=== PATIENT | male | born 1950 | race Caucasian/White ===

== ENCOUNTER 2017-04-26 05:58 | Inpatient (IN) ==
[2017-04-26 06:35] LABS: Basophils % 0.2 %; Hemoglobin 15.3 g/dL (12.9-16.9); Immature Granulocytes % 0.5 % (0-4); Lymphocytes % 14.8 %; Mean Corpuscular HGB Conc 35.6 g/dL (31.6-35.5); Mean Corpuscular Hemoglobin 31.2 pg (28.0-33.3); Mean Corpuscular Volume 87.6 fL (83.0-100.0); Mean Platelet Volume 11.2 fL (9.4-12.4); Monocytes # 0.7 K/mcL (0.0-1.3); Monocytes % 5.4 %; Neutrophils # 10.5 K/mcL (1.6-8.9); Platelet Count 259 K/mcL (140-400); Red Blood Count 4.91 M/mcL (4.19-5.50); Red Cell Distribution Width 12.5 % (11.5-14.5); Segmented Neutrophils % 79.1 %
[2017-04-26 06:46] LABS: BUN/Creatinine Ratio 18 (6-26); Blood Urea Nitrogen 17 mg/dL (8-23); Calcium 8.9 mg/dL (8.6-10.3); Carbon Dioxide 23 mEq/L (23-29); Chloride 101 mEq/L (98-107); Glucose 337 mg/dL (70-105); Osmolality,Calculated 293 (280-300); Potassium 3.9 mEq/L (3.5-5.1); Sodium 134 mEq/L (136-145); eGFR For African Americans > 60 (> 60); eGFR For Non-African Americans > 60 (> 60)
--- NOTE | 2017-04-26 06:53 | Emergency Department Note ---
Disposition Clinical Impression: Community acquired pneumonia Disposition: Admitted As Inpatient Condition: Good SOB HPI - General Chief Complaint: ED Shortness of Breath/Dyspnea Stated Complaint: BUBBA Time Seen by Provider: 04/26/17 06:19 Source: patient, family Mode of arrival: private vehicle Limitations: no limitations Nursing Notes Reviewed: Yes Vital Signs Reviewed: Yes - History of Present Illness 67-year-old male history of COPD, atrial fibrillation on xarelto, COPD no oxygen dependency who presents to the ER with a chief complaint of shortness of breath. Patient reports he had nasal polyp surgery yesterday by ENT. States he had intermittent shortness of breath for couple days but nothing severe. He only has to use his COPD medications as needed. He reports no the night that he developed sudden onset shortness of breath. States he got up and was walking around and that seemed to help. 6 systolic he could not get his breath. He reports that he was coughing up some blood yesterday after the surgery but that improved. He has been off his anticoagulation for a few days he reports. No chest pain. No nausea vomiting or diarrhea. No fevers. No other complaints. Pt Subjective Complaint: shortness of breath Onset (ago): hour(s) Severity: severe Consistency/Duration: constant Improves with: nothing Worsens with: nothing Known history of: COPD Associated symptoms: Reports: cough. Denies: chest pain, fever Treatment prior to arrival: none Cough present: Yes Cough Description: Involuntary Cough Frequency: Intermittent Sputum production: No Sputum Amount: None - Related Data Home oxygen amount: none Home Medications Medication Instructions Recorded Confirmed Fish Oil/Dha/Epa [Fish Oil 1,200 1,200 mg PO BID 05/12/16 04/26/17 mg Fish Oil] Losartan/Hydrochlorothiazide 1 tab PO DAILY 05/12/16 04/26/17 [Hyzaar 100-25 Tablet] Metformin HCl [Glucophage Xr] 750 mg PO BID 05/12/16 04/26/17 Rivaroxaban [Xarelto] 20 mg PO DAILY 05/12/16 04/26/17 Simvastatin [Zocor] 20 mg PO DAILY 05/12/16 04/26/17 Sotalol HCl [Betapace] 120 mg PO BID 05/12/16 04/26/17 Zolpidem [Ambien] 10 mg PO HS 05/12/16 04/26/17 Fluticasone Propionate Nasal 1 spray NS DAILY 04/25/17 04/26/17 [Flonase] Fluticasone/Vilanterol [Breo 1 puff IH DAILY 04/25/17 04/26/17 Ellipta 100-25 Mcg INH] GlipiZIDE [Glipizide ER] 10 mg PO BID 04/25/17 04/26/17 Insulin Glargine,Hum.rec.anlog 20 unit SQ HS 04/25/17 04/26/17 [Lantus Solostar] Montelukast [Singulair] 10 mg PO DAILY 04/25/17 04/26/17 Omeprazole [PriLOSEC] 40 mg PO DAILY 04/25/17 04/26/17 Previous Rx's Medication Instructions Recorded HYDROcodone/Acet 5/325 mg [[place] 1 tab PO Q4H PRN #42 tab 04/25/17 5-325 mg] Albuterol Sulfate [Albuterol 0 puff IH Q6HR 7 Days #1 vial 04/28/17 Inhaler] Cefuroxime PO [Ceftin] 500 mg PO Q12HR 5 Days #5 tablet 04/28/17 Doxycycline 100 mg PO BID 7 Days #14 capsule 04/28/17 amLODIPine [Norvasc] 10 mg PO DAILY #60 tablet 04/28/17 predniSONE [PredniSONE] 10 mg PO AD #30 tablet 04/28/17 Allergies Allergy/AdvReac Type Severity Reaction Status Date / Time No Known Allergies Allergy Verified 04/26/17 05:59 All systems ED: reviewed and negative except as stated. Constitutional: Denies: fever Cardiovascular: Denies: chest pain Respiratory: Reports: cough, dyspnea, hemoptysis Gastrointestinal: Denies: nausea, vomiting, diarrhea Past Medical History - Past Medical History Attestation: Yes The following information was validated with the patient. Source: patient Medical history: Reports: arthritis, atrial fibrillation, diabetes, GERD, hyperlipidemia, hypertension Psychiatric history: Reports: no psych history - Social History Smoking Status: Former smoker Smokeless Tobacco Status: No Alcohol use: Reports: none Drug use: Reports: none Physical Exam - General Limitations: no limitations General appearance: alert, anxious - Head Head exam: atraumatic, normocephalic - Eye Eye exam: Present: normal appearance - ENT ENT exam: normal exam, normal oropharynx - Neck Neck exam: Present: normal inspection - Chest Chest inspection: Present: normal inspection, symmetric chest wall rise - Respiratory Respiratory exam: Present: normal lung sounds bilaterally. Absent: wheezes, stridor, prolonged expiratory phase - Cardiovascular Cardiovascular exam: Present: regular rate, irregular rhythm, normal heart sounds - Abdominal Exam Abdominal exam: Present: soft, Non-Tender. Absent: tenderness - Extremities Exam Extremities exam: Present: normal inspection, full ROM - Expanded Upper Extremity Exam Shoulder exam: Present: normal inspection, full ROM Arm exam: Present: normal inspection, full ROM Elbow exam: Present: normal inspection, full ROM Forearm/Wrist exam: Present: normal inspection, full ROM Hand exam: Present: normal inspection, full ROM - Expanded Lower Extremity Exam Hip/Pelvis exam: Present: normal inspection, full ROM Upper leg exam: Present: normal inspection, full ROM Knee exam: Present: normal inspection, full ROM Lower leg exam: Present: normal inspection, full ROM Ankle exam: Present: normal inspection, full ROM Foot/toe exam: Present: normal inspection, full ROM - Neurological Exam Neurological exam: Present: alert, other (Appears anxious. GCS 15. Nonfocal.) - Psychiatric Psychiatric exam: Present: anxious - Skin Skin exam: Present: warm, dry, intact Course Course Narrative: Patient seen and examined. He is around 91% during conversation but this improved to 97% without oxygen. He appears conversationally dyspneic. Given his recent hold on anticoagulation and sudden onset of symptoms we will pursue a CTA for evaluation of pulmonary embolus as well as EKG and labs including troponin and BNP. - Reevaluation(s) Reevaluation #1: Discussed results of imaging and lab work with the patient. He is agreeable with being admitted to the hospital. Vital Signs Temperature 98.2 F 04/26/17 05:59 Pulse Rate 74 04/26/17 05:59 Respiratory Rate 24 04/26/17 05:59 Blood Pressure 197/115 04/26/17 05:59 O2 Sat by Pulse Oximetry 97 04/26/17 05:59 Temperature 98.2 F 04/28/17 15:31 Pulse Rate 77 04/28/17 15:31 Respiratory Rate 16 04/28/17 15:31 Blood Pressure 170/92 04/28/17 15:31 O2 Sat by Pulse Oximetry 94 04/28/17 15:31 Oxygen Delivery Oxygen Delivery Nasal Cannula Shortness of Breath/Dyspnea - [facility] Narrative Medical decision making narrative: 67-year-old male presents to the ER due to shortness of breath. Recently had sinus procedure and has been off anticoagulation. He was noted to be down to 91 % on room air here however improved without intervention. Currently on 2 L nasal cannula for comfort. EKG shows no ischemic findings. Chest x-ray unremarkable. CT obtained given concern for pulmonary embolism. Questionable developing right upper lobe pneumonia. Patient given Rocephin and Zithromax. Lactate is normal. Admitted to the hospitalist service for community-acquired pneumonia. - Lab Data Lab results reviewed: Yes I reviewed the patient's lab results. Result diagrams: 04/28/17 13:04 04/28/17 13:04 Lab Results 04/26/17 04/26/17 04/26/17 Range/Units 06:15 06:15 06:15 WBC 13.3 H (4.3-11.1) K/mcL RBC 4.91 (4.19-5.50) M/mcL Hgb 15.3 (12.9-16.9) g/dL Hct 43.0 (37.5-50.1) % MCV 87.6 (83.0-100.0) fL MCH 31.2 (28.0-33.3) pg MCHC 35.6 H (31.6-35.5) g/dL RDW 12.5 (11.5-14.5) % Plt Count 259 (140-400) K/mcL MPV 11.2 (9.4-12.4) fL Immature Gran % 0.5 (0-4) % Seg Neutrophils % 79.1 % Lymphocytes % 14.8 % Monocytes % 5.4 % Eosinophils % 0.0 % Basophils % 0.2 % Neutrophils # 10.5 H (1.6-8.9) K/mcL Lymphocytes # 2.0 (0.6-4.6) K/mcL Monocytes # 0.7 (0.0-1.3) K/mcL Eosinophils # 0.0 (0.0-0.6) K/mcL Basophils # 0.0 (0.0-0.2) K/mcL Sodium 134 L (136-145) mEq/L Potassium 3.9 (3.5-5.1) mEq/L Chloride 101 (98-107) mEq/L Carbon Dioxide 23 (23-29) mEq/L BUN 17 (8-23) mg/dL Creatinine 0.96 (0.70-1.30) mg/dL Est GFR ( Amer) > 60 (> 60) Est GFR (Non-Af Amer) > 60 (> 60) BUN/Creatinine Ratio 18 (6-26) Glucose 337 H (70-105) mg/dL Calculated Osmolality 293 (280-300) Lactic Acid (0.5-2.2) mmol/L Calcium 8.9 (8.6-10.3) mg/dL Troponin I < 0.03 (< 0.04) ng/mL B-Natriuretic Peptide (Less than 100) pg/mL 04/26/17 04/26/17 Range/Units 06:15 08:16 WBC (4.3-11.1) K/mcL RBC (4.19-5.50) M/mcL Hgb (12.9-16.9) g/dL Hct (37.5-50.1) % MCV (83.0-100.0) fL MCH (28.0-33.3) pg MCHC (31.6-35.5) g/dL RDW (11.5-14.5) % Plt Count (140-400) K/mcL MPV (9.4-12.4) fL Immature Gran % (0-4) % Seg Neutrophils % % Lymphocytes % % Monocytes % % Eosinophils % % Basophils % % Neutrophils # (1.6-8.9) K/mcL Lymphocytes # (0.6-4.6) K/mcL Monocytes # (0.0-1.3) K/mcL Eosinophils # (0.0-0.6) K/mcL Basophils # (0.0-0.2) K/mcL Sodium (136-145) mEq/L Potassium (3.5-5.1) mEq/L Chloride (98-107) mEq/L Carbon Dioxide (23-29) mEq/L BUN (8-23) mg/dL Creatinine (0.70-1.30) mg/dL Est GFR ( Amer) (> 60) Est GFR (Non-Af Amer) (> 60) BUN/Creatinine Ratio (6-26) Glucose (70-105) mg/dL Calculated Osmolality (280-300) Lactic Acid 1.2 (0.5-2.2) mmol/L Calcium (8.6-10.3) mg/dL Troponin I (< 0.04) ng/mL B-Natriuretic Peptide 118 H (Less than 100) pg/mL - Radiology Data Radiology results reviewed: Yes I reviewed the patient's radiology results. Chest X-Ray 04/26/17 06:29 IMPRESSION: Hypoinflated lungs. No acute cardiopulmonary abnormality. D/ / Tara Perry MD / Tara Perry MD Interpreting Provider: Tara Perry MD Chest CTA 04/26/17 06:55 IMPRESSION: 1. No CT evidence of a pulmonary embolism. 2. No acute abnormality of the thoracic aorta. 3. A focal reticulonodular opacity within the posterior segment of right upper lobe, most consistent with developing pneumonia. However, given its somewhat nodular appearance, suggest appropriate clinical treatment and short-term chest CT follow-up in 6-8 weeks to ensure resolution of this opacity. 4. Scattered diffuse ground-glass opacity throughout both lungs likely reflects either atelectasis, pulmonary edema, or chronic small airways disease. D/ / 04/26/2017 07:55:45 Rob Mai MD / [facility] Interpreting Provider: Rob Mai MD - EKG Data EKG attestation: Yes I reviewed and interpreted this EKG. EKG results narrative: EKG demonstrates sinus rhythm with first-degree AV block with a rate of 70 bpm. Normal axis. Prolonged FL interval of 336. Other intervals normal. Normal R -wave progression. T-wave inversion in lead 3 unchanged from previous. No gross ST elevations or depressions. No acute ischemic findings. No significant changes from previous EKG dated 05/12/16. S.B.A.R. - S.B.A.R. Situation: Demographics, MOA Background: Presenting Complaint, Relevant PMH, Meds, & Allergies Assessment: Course and respsone to treatment, Exam Concerns, Patient/Family Expectation, Pertinant Lab Results Recommendation: Barrier(s) to disposition, Recommendation based on pending studies, treatments, or consults S.B.A.R. Report Given to: Dr. Castro Attestation Statement - Attestation Attestation: I examined this patient and my medical decision-making was reviewed with the Resident Physician, Dr. Kaur. I agree with the documented findings, disposition and treatment plan as described except to the extent set forth below. Patient is a 67-year-old white male with a history of COPD and atrial fibrillation on Xarelto who presents to the emergency department this morning status post sinus surgery with nasal pack in place bilaterally is complaining of gradually worsening shortness of breath. Patient was initially seen and evaluated by Dr. Greer and the night clerk team, we resumed care after initial labs that are even ordered and we were awaiting CT imaging. Concerned by the night clerk team was that he had been taken off his Xarelto for 2 days for his sinus surgery and then developed sudden onset shortness of breath and were concerned about possibility of PE. Patient is not tachycardic on arrival. Patient was quite hypertensive on initial arrival on reevaluation later in his ED course blood pressure has come down significantly without any intervention in the ED. Patient is in no acute distress with no signs of respiratory distress but does have some mild conversational dyspnea. I agree with the patient's physical exam findings as documented. Blood pressure improved. Patient received initial laboratory assessment, we added a lactate based on patient's elevated white count and tachypnea which now meet SIRS criteria. Patient's blood pressure is stable remaining vitals are stable at this time. I did evaluate the patient upon return from CT scanner and IV fluids were reestablished on arrival back to the room and patient had infiltration of the normal saline. Peripheral IV fluids were discontinued and IV was removed warm compress was placed on the site. Patient had no pain to the IV site during IV contrast dye administration and CT. CT scan was negative for PE, but does show likely right upper lobe pneumonia. Patient with bilateral groundglass opacities but right greater than left. Considering patient's postop status, difficulty with nasal breathing due to packing, exacerbation of COPD and now pneumonia we will recommend admission for further evaluation and treatment. Patient will be started on antibiotics to cover for community-acquired pneumonia, and case will be discussed with hospitalist.
--- NOTE | 2017-04-26 06:54 | Emergency Department Note ---
START Narrative - START START: I examined this patient and my medical decision-making was reviewed with the Resident Physician. I agree with the documented findings, disposition and treatment plan as described except to the extent set forth below. Dyspnea. We will obtain CTA to rule out pulmonary embolism. Disposition pending results of advanced imaging and laboratory analysis.
[2017-04-26] MEDS: 0.9 % Sodium Chloride 500 ML IVC ONE ×2 (07:40→08:18)
[2017-04-26] MEDS ORDERED: Ipratropium/Albuterol Neb 3 ML IH ONE (08:03)
[2017-04-26] MEDS ORDERED: cefTRIAXone 1,000 MG in Water for inj. (sterile) 20 ML 10 ML IVP ONE (08:16)
[2017-04-26] MEDS ORDERED: Azithromycin 500 MG in D5% in Water 250 ML IVPB ONE (08:16)
--- NOTE | 2017-04-26 09:52 | Internal Med History&Physical ---
Date of Encounter: 05/26/17 Time of Encounter: 09:50 Assessment and Plan (1) COPD (chronic obstructive pulmonary disease) Status: Acute - SOB due to *COPD exacerbation caused by URTI, allergen exposure, medication nonocompliance PLAN: - Aerosols q 4 hr and PRN SOB - Solu-medrol 40 mg IV q 6 hr - O2 to keep SpO2 higher than 92% (SpO higher than 95% if CAD) - CBCD, BMP in AM - Sputum Gram stain, C+S - Tylenol 650 mg PO q 4-6 hr PRN pain/fever - Home meds - check the list and restart - ABs Qualifiers: Qualified Code(s): J44.9 - Chronic obstructive pulmonary disease, unspecified (2) Pneumonia Status: Acute CTA reveled A focal reticulonodular opacity within the posterior segment of right upper lobe, most consistent with questionable developing pneumonia. - Cont Abs , repeat CXR in Am Qualifiers: Pneumonia type: due to unspecified organism Laterality: right Lung location: upper lobe of lung Qualified Code(s): J18.1 - Lobar pneumonia, unspecified organism (3) Hypertension Status: Acute We will cont home meds. Qualifiers: Hypertension type: essential hypertension Qualified Code(s): I10 - Essential (primary) hypertension (4) Diabetes Status: Chronic We will cont home meds, HGB A1C , accu-check with coverage. 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 Internal Medicine - H&P: HPI Chief complaint: SOB Admitted From: Home History of present illness: Mr. Rosario is a 67 year old male with history of COPD, atrial fibrillation on xarelto, COPD no oxygen dependency and s/p nasal polyp surgery yesterday by ENT , who presents to the ER with a chief complaint of developed sudden onset of shortness of breath overnight. He has been off his anticoagulation for a few days wich raised a concern of possible PE howeever CTA obtained by ER was negative , he was admitted for further evaluation of COPD. Past Med Surg Social Fam HX - Past Medical History Medical history: arthritis, atrial fibrillation, diabetes, GERD, hyperlipidemia , hypertension Psychiatric history: no psych history - Social History Smoking Status: Former smoker Smokeless Tobacco Status: No Alcohol use: none Drug use: none Internal Medicine - H&P: Meds Fish Oil/Dha/Epa [Fish Oil 1,200 mg Fish Oil] 1,200 mg PO BID 05/12/16 [History] Losartan/Hydrochlorothiazide [Hyzaar 100-25 Tablet] 1 tab PO DAILY 05/12/16 [ History] Metformin HCl [Glucophage Xr] 750 mg PO BID 05/12/16 [History] Rivaroxaban [Xarelto] 20 mg PO DAILY 05/12/16 [History] Simvastatin [Zocor] 20 mg PO DAILY 05/12/16 [History] Sotalol HCl [Betapace] 120 mg PO BID 05/12/16 [History] Zolpidem [Ambien] 10 mg PO HS 05/12/16 [History] Fluticasone Propionate Nasal [Flonase] 1 spray NS DAILY 04/25/17 [History] Fluticasone/Vilanterol [Breo Ellipta 100-25 Mcg INH] 1 puff IH DAILY 04/25/17 [ History] GlipiZIDE [Glipizide ER] 10 mg PO BID 04/25/17 [History] HYDROcodone/Acet 5/325 mg [[place] 5-325 mg] 1 tab PO Q4H PRN #42 tab 04/25/17 [Rx ] Insulin Glargine,Hum.rec.anlog [Lantus Solostar] 20 unit SQ HS 04/25/17 [History ] Montelukast [Singulair] 10 mg PO DAILY 04/25/17 [History] Omeprazole [PriLOSEC] 40 mg PO DAILY 04/25/17 [History] Albuterol Sulfate [Albuterol Inhaler] 0 puff IH Q6HR 7 Days #1 vial 04/28/17 [Rx ] Cefuroxime PO [Ceftin] 500 mg PO Q12HR 5 Days #5 tablet 04/28/17 [Rx] Doxycycline 100 mg PO BID 7 Days #14 capsule 04/28/17 [Rx] amLODIPine [Norvasc] 10 mg PO DAILY #60 tablet 04/28/17 [Rx] predniSONE [PredniSONE] 10 mg PO AD #30 tablet 04/28/17 [Rx] 3 Allergy/AdvReac Type Severity Reaction Status Date / Time No Known Allergies Allergy Verified 04/26/17 05:59 All Systems PM: A 10-system review of systems was performed and is negative for pertinent findings except as documented above in the HPI. - Constitutional Constitutional: fatigue, no chills, no fever(s), no night sweats - EENT Eyes: no change in vision, no discharge, no pain, no photophobia Ears: no ear discharge, no ear pain, no tinnitus Nose, mouth and throat: no dysphagia, no nasal discharge, no neck pain, no sore throat - Cardiovascular Cardiovascular ROS IM: dyspnea, no chest pain, no diaphoresis, no lightheadedness, no palpitations, no syncope - Respiratory Respiratory: cough, dyspnea, wheezing, no excessive phlegm production - Gastrointestinal Gastrointestinal: no abdominal pain, no diarrhea, no hematemesis, no hematochezia, no melena, no nausea, no vomiting - Neurological Neurological ROS: no confusion, no convulsions, no focal weakness, no numbness, no tingling, no tremor(s) - Constitutional Vitals: Temp Pulse Resp BP Pulse Ox 98.2 F 61 18 158/81 97 04/26/17 05:59 04/26/17 08:43 04/26/17 08:43 04/26/17 08:43 04/26/17 08:43 General appearance: Present: A&O X 3, pleasant, obese - Head Head exam: Present: atraumatic, normocephalic - Eye Eye exam: Present: PERRL, conjuntiva pink, sclera anicteric Pupils: Present: PERRL - Neck Neck exam general surgery: Present: supple, trachea midline. Absent: lymphadenopathy - Respiratory Respiratory exam: Present: rhonchi, wheezes. Absent: accessory muscle use, rales - Cardiovascular Cardiovascular exam: Present: RRR, +S1, +S2. Absent: diastolic murmur, gallop, rubs, systolic murmur - GI/Abdominal GI/Abdominal exam: Present: normal bowel sounds, soft, no peritoneal signs. Absent: distended, tenderness - Extremities Exam Extremities exam: Present: warm, radial pulses palpable and symmetrical. Absent : calf tenderness, cyanotic, pedal edema - Neurological Exam Neurological exam: Present: CN II-XII intact, oriented X3, no focal deficits. Absent: pronater drift, facial droop, speech deficit Internal Med - H&P Results - Labs CBC & Chem 7: 04/28/17 13:04 04/28/17 13:04 Labs: Short CBC 04/26/17 Range/Units 06:15 WBC 13.3 H (4.3-11.1) K/mcL Hgb 15.3 (12.9-16.9) g/dL Hct 43.0 (37.5-50.1) % Plt Count 259 (140-400) K/mcL Neutrophils # 10.5 H (1.6-8.9) K/mcL BMP 04/26/17 06:15 Sodium 134 L Potassium 3.9 Chloride 101 Carbon Dioxide 23 BUN 17 Creatinine 0.96 Glucose 337 H Calcium 8.9 Cardiac Enzymes 04/26/17 Range/Units 06:15 Troponin I < 0.03 (< 0.04) ng/mL - Impressions ITS Impressions Chest X-Ray 04/26/17 06:29 IMPRESSION: Hypoinflated lungs. No acute cardiopulmonary abnormality. D/ / Tara Perry MD / Tara Perry MD Interpreting Provider: Tara Perry MD Chest CTA 04/26/17 06:55 IMPRESSION: 1. No CT evidence of a pulmonary embolism. 2. No acute abnormality of the thoracic aorta. 3. A focal reticulonodular opacity within the posterior segment of right upper lobe, most consistent with developing pneumonia. However, given its somewhat nodular appearance, suggest appropriate clinical treatment and short-term chest CT follow-up in 6-8 weeks to ensure resolution of this opacity. 4. Scattered diffuse ground-glass opacity throughout both lungs likely reflects either atelectasis, pulmonary edema, or chronic small airways disease. D/ / 04/26/2017 07:55:45 Rob Mai MD / [email or web address] Interpreting Provider: Rob Mai MD
[2017-04-26] MEDS ORDERED: *HR* HYDROcodone/Acet 5/325 mg TABLET PO PRN (09:59)
[2017-04-26] MEDS ORDERED: *HR* Morphine 2 MG/ML SYRINGE IVP PRN (10:07)
[2017-04-26] MEDS ORDERED: Naloxone 0.4 MG/ML INJ IVP PRN (10:07)
[2017-04-26] MEDS ORDERED: Acetaminophen 325 MG TABLET PO PRN (10:07)
[2017-04-26] MEDS ORDERED: Mag Hydrox/Al Hydrox/Simeth 30 ML UDC PO PRN (10:07)
[2017-04-26] MEDS ORDERED: Ondansetron ODT 4 MG TAB.RAPDIS SL PRN (10:07)
[2017-04-26 11:01] LABS: Alanine Aminotransferase 14 Units/L (7-52); Albumin 4.1 g/dL (3.5-5.7); Albumin/Globulin Ratio 1.8 (1.1-2.2); Alkaline Phosphatase 91 Units/L (34-104); Aspartate Amino Transferase 14 Units/L (13-39); BUN/Creatinine Ratio 16 (6-26); Bilirubin,Total 0.7 mg/dL (0.3-1.0); Blood Urea Nitrogen 15 mg/dL (8-23); Calcium 8.7 mg/dL (8.6-10.3); Carbon Dioxide 22 mEq/L (23-29); Chloride 103 mEq/L (98-107); Globulin 2.3 g/dL (2.4-3.5); Glucose 331 mg/dL (70-105); Osmolality,Calculated 294 (280-300); Potassium 3.5 mEq/L (3.5-5.1); Sodium 135 mEq/L (136-145); Total Protein 6.4 g/dL (6.4-8.9); eGFR For African Americans > 60 (> 60); eGFR For Non-African Americans > 60 (> 60)
[2017-04-26] MEDS: Ipratropium/Albuterol Neb 3 ML IH SCH ×3 (11:20→22:28)
[2017-04-26] MEDS: 0.9 % Sodium Chloride 1,000 ML IVC SCH ×2 (11:39→21:02)
[2017-04-26] MEDS: MethylPREDNISolone 40 MG/ML VIAL IVP SCH ×2 (11:40→17:50)
[2017-04-26] MEDS ORDERED: *HR* Dextrose 50 % in Water (Syg) 50 ML SYRINGE IVP PRN (11:47)
[2017-04-26] MEDS ORDERED: Dextrose Gel 15 GM/37.5 ML TUBE PO PRN ×2 (11:47)
[2017-04-26] MEDS ORDERED: D5% in Water 1,000 ML IVC PRN (11:47)
[2017-04-26] MEDS ORDERED: Insulin LISPRO 300 UNITS/3 ML VIAL SQ ONE (11:51)
[2017-04-26] MEDS: Insulin LISPRO 300 UNITS/3 ML VIAL SQ SCH ×3 (12:00→20:54)
[2017-04-26] MEDS ORDERED: Losartan/HCTZ 50-12.5 TABLET PO ONE (20:52)
[2017-04-26] MEDS ORDERED: *HR* GlipiZIDE XL (24 HR) 10 MG TABLET PO SCH (21:00)
[2017-04-26] MEDS ORDERED: *HR* Metformin 500 MG TABLET PO SCH (21:00)
[2017-04-26] MEDS: Insulin DETEMIR 100 UNIT/ML X5UNITS SQ SCH (21:06)
[2017-04-27] MEDS: MethylPREDNISolone 40 MG/ML VIAL IVP SCH ×3 (00:12→21:35)
[2017-04-27] MEDS ORDERED: Saliva Stimulant 100ml BOTTLE PO PRN (01:51)
[2017-04-27 03:03] LABS: Basophils % 0.1 %; Hematocrit 42.5 % (37.5-50.1); Hemoglobin 14.6 g/dL (12.9-16.9); Immature Granulocytes % 0.3 % (0-4); Lymphocytes # 1.4 K/mcL (0.6-4.6); Lymphocytes % 11.8 %; Mean Corpuscular HGB Conc 34.4 g/dL (31.6-35.5); Mean Corpuscular Hemoglobin 30.8 pg (28.0-33.3); Mean Corpuscular Volume 89.7 fL (83.0-100.0); Monocytes # 0.3 K/mcL (0.0-1.3); Monocytes % 2.3 %; Neutrophils # 9.9 K/mcL (1.6-8.9); Platelet Count 235 K/mcL (140-400); Red Blood Count 4.74 M/mcL (4.19-5.50); Red Cell Distribution Width 12.8 % (11.5-14.5); Segmented Neutrophils % 85.5 %
[2017-04-27] MEDS: Ipratropium/Albuterol Neb 3 ML IH SCH ×4 (04:03→22:00)
[2017-04-27] MEDS: Losartan/HCTZ 50-12.5 TABLET PO SCH (08:50)
[2017-04-27] MEDS: Azithromycin 500 MG in D5% in Water 250 ML IVPB SCH (08:51)
[2017-04-27] MEDS: cefTRIAXone 1,000 MG in Water for inj. (sterile) 20 ML 10 ML IVP SCH (08:51)
[2017-04-27] MEDS: Insulin LISPRO 300 UNITS/3 ML VIAL SQ SCH ×4 (08:52→21:31)
[2017-04-27] MEDS ORDERED: predniSONE 10 MG TABLET PO SCH (09:00)
--- NOTE | 2017-04-27 09:32 | Internal Med Progress Note ---
Date of Encounter: 04/27/17 Time of Encounter: 09:30 - Assessment and plan (1) Pneumonia Current Visit: Yes Status: Acute Qualifiers: Pneumonia type: due to unspecified organism Laterality: right Lung location: upper lobe of lung Qualified Code(s): J18.1 - Lobar pneumonia, unspecified organism (2) COPD with exacerbation Current Visit: Yes Status: Acute (3) Hypertension Current Visit: No Status: Acute Qualifiers: Hypertension type: essential hypertension Qualified Code(s): I10 - Essential (primary) hypertension (4) Diabetes Current Visit: No Status: Chronic Qualifiers: Diabetes mellitus type: type 2 Diabetes mellitus complication status: without complication Diabetes mellitus terminologist insulin use: with usp use Qualified Code(s): E11.9 - Type 2 diabetes mellitus without complications ; 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 FSG WORSENED BY STEROIDS. WILL TAPER MENTIONED ABOVE. BP ELEVATED, RECHECK VITALS AFTER MORNING BP MEDS. ANTICIPATE DC TO HOME IN THE AM. Qualifiers: Hyperlipidemia type: mixed hyperlipidemia Qualified Code(s): E78.2 - Mixed hyperlipidemia - Subjective Interval history: reports improvement in breathing - Constitutional Vitals: Temp Pulse Resp BP Pulse Ox 98.9 F 61 16 156/91 90 04/27/17 06:40 04/27/17 06:40 04/27/17 06:40 04/27/17 06:40 04/27/17 06:40 General appearance: Present: A&O X 3, pleasant, obese - Head Head exam: Present: atraumatic, normocephalic - Eye Eye exam: Present: PERRL, conjuntiva pink, sclera anicteric Pupils: Present: PERRL - ENT Additional comments: nasal packing present - Neck Neck exam general surgery: Present: supple, trachea midline. Absent: lymphadenopathy - Respiratory Respiratory exam: Present: CTAB. Absent: accessory muscle use, rales, rhonchi, wheezes - Cardiovascular Cardiovascular exam: Present: RRR, +S1, +S2. Absent: diastolic murmur, gallop, rubs, systolic murmur - GI/Abdominal GI/Abdominal exam: Present: normal bowel sounds, soft, no peritoneal signs. Absent: distended, tenderness - Extremities Exam Extremities exam: Present: warm, radial pulses palpable and symmetrical. Absent : calf tenderness, cyanotic, pedal edema - Neurological Exam Neurological exam: Present: CN II-XII intact, oriented X3, no focal deficits. Absent: pronater drift, facial droop, speech deficit - Skin Skin exam: Present: dry, intact Internal Medicine: Result - Labs CBC & Chem 7: 04/27/17 00:40 04/26/17 10:38 Labs: Short CBC 04/27/17 Range/Units 00:40 WBC 11.5 H (4.3-11.1) K/mcL Hgb 14.6 (12.9-16.9) g/dL Hct 42.5 (37.5-50.1) % Plt Count 235 (140-400) K/mcL Neutrophils # 9.9 H (1.6-8.9) K/mcL BMP 04/26/17 10:38 Sodium 135 L Potassium 3.5 Chloride 103 Carbon Dioxide 22 L BUN 15 Creatinine 0.91 Glucose 331 H Calcium 8.7 Cardiac Enzymes 04/26/17 04/26/17 04/27/17 Range/Units 12:25 18:31 00:40 Troponin I < 0.03 < 0.03 < 0.03 (< 0.04) ng/mL Liver Function 04/26/17 Range/Units 10:38 Total Bilirubin 0.7 (0.3-1.0) mg/dL AST 14 (13-39) Units/L ALT 14 (7-52) Units/L Alkaline Phosphatase 91 (34-104) Units/L Albumin 4.1 (3.5-5.7) g/dL Consult Discharge Plan - Plan Referrals: Georgie Farr, [employer] [Primary Care Provider] -
[2017-04-27] MEDS ORDERED: MethylPREDNISolone 40 MG/ML VIAL IVP SCH (18:00)
--- NOTE | 2017-04-27 19:41 | Electrocardiograph Report ---
[address] [address] Test Date: 2017-04-26 Pat Name: Cole Rosario Department: 104 Room: 3A14 Gender: M Diabetes Clinical Manager: : 1950 Requested By: Star Moctezuma Order Number: [id number] Reading MD: Carlos Tucker MD Measurements Intervals [place] Rate: 78 P: 39 [place]: 336 QRS: 8 QRSD: 76 T: -9 QT: 376 QTc: 409 Interpretive Statements SINUS RHYTHM WITH FIRST DEGREE AV BLOCK Electronically Signed On 04-27-2017 19:39:38 EST by Carlos Tucker MD
[2017-04-27] MEDS: Insulin DETEMIR 100 UNIT/ML X5UNITS SQ SCH (20:24)
[2017-04-28] MEDS: Ipratropium/Albuterol Neb 3 ML IH SCH ×3 (04:16→15:50)
[2017-04-28] MEDS: Losartan/HCTZ 50-12.5 TABLET PO SCH (08:17)
[2017-04-28] MEDS: cefTRIAXone 1,000 MG in Water for inj. (sterile) 20 ML 10 ML IVP SCH (08:18)
[2017-04-28] MEDS: Azithromycin 500 MG in D5% in Water 250 ML IVPB SCH (08:18)
[2017-04-28] MEDS: Insulin LISPRO 300 UNITS/3 ML VIAL SQ SCH ×2 (08:24→11:48)
[2017-04-28] MEDS ORDERED: predniSONE 20 MG TABLET PO SCH (09:00)
[2017-04-28 13:15] LABS: Basophils % 0.1 %; Hematocrit 44.9 % (37.5-50.1); Hemoglobin 15.6 g/dL (12.9-16.9); Immature Granulocytes % 0.6 % (0-4); Lymphocytes # 1.6 K/mcL (0.6-4.6); Lymphocytes % 9.7 %; Mean Corpuscular HGB Conc 34.7 g/dL (31.6-35.5); Mean Corpuscular Hemoglobin 30.6 pg (28.0-33.3); Mean Corpuscular Volume 88.2 fL (83.0-100.0); Mean Platelet Volume 11.1 fL (9.4-12.4); Monocytes # 0.7 K/mcL (0.0-1.3); Monocytes % 4.1 %; Platelet Count 263 K/mcL (140-400); Red Blood Count 5.09 M/mcL (4.19-5.50); Red Cell Distribution Width 12.9 % (11.5-14.5); Segmented Neutrophils % 85.5 %
[2017-04-28 13:32] LABS: BUN/Creatinine Ratio 21 (6-26); Blood Urea Nitrogen 20 mg/dL (8-23); Carbon Dioxide 24 mEq/L (23-29); Chloride 103 mEq/L (98-107); Glucose 366 mg/dL (70-105); Osmolality,Calculated 299 (280-300); Potassium 3.7 mEq/L (3.5-5.1); Sodium 136 mEq/L (136-145); eGFR For African Americans > 60 (> 60); eGFR For Non-African Americans > 60 (> 60)
[2017-04-28 15:32] VITALS: BP 170/92
--- NOTE | 2017-04-28 15:34 | Discharge Summary ---
Date of Encounter: 04/28/17 Time of Encounter: 15:30 - Discharge Diagnosis (1) Pneumonia Priority: Primary Status: Acute Qualifiers: Pneumonia type: due to unspecified organism Laterality: right Lung location: upper lobe of lung Qualified Code(s): J18.1 - Lobar pneumonia, unspecified organism (2) COPD with exacerbation Priority: Primary Status: Acute (3) Hypertension Priority: Primary Status: Acute Qualifiers: Hypertension type: essential hypertension Qualified Code(s): I10 - Essential (primary) hypertension (4) Diabetes Priority: Primary Status: Chronic Qualifiers: Diabetes mellitus type: type 2 Diabetes mellitus complication status: without complication Diabetes mellitus usp insulin use: with middle or intermediate school principal use Qualified Code(s): E11.9 - Type 2 diabetes mellitus without complications ; Z79.4 - correction (current) use of insulin; Z79.4 - technician terminal and repeater (current) use of insulin; Z79.4 - technician terminal and repeater (current) use of insulin; Z79.4 - correction ( current) use of insulin (5) Hyperlipidemia Priority: Secondary Status: Chronic Qualifiers: Hyperlipidemia type: mixed hyperlipidemia Qualified Code(s): E78.2 - Mixed hyperlipidemia - Discharge Medications Prescriptions: Albuterol Sulfate [Albuterol Inhaler] 0 puff IH Q6HR 7 Days #1 vial Cefuroxime PO [Ceftin] 500 mg PO Q12HR 5 Days #5 tablet amLODIPine [Norvasc] 10 mg PO DAILY #60 tablet Doxycycline 100 mg PO BID 7 Days #14 capsule predniSONE [PredniSONE] 10 mg PO AD #30 tablet Home Medications: Fish Oil/Dha/Epa [Fish Oil 1,200 mg Fish Oil] 1,200 mg PO BID 05/12/16 [History] Losartan/Hydrochlorothiazide [Hyzaar 100-25 Tablet] 1 tab PO DAILY 05/12/16 [ History] Metformin HCl [Glucophage Xr] 750 mg PO BID 05/12/16 [History] Rivaroxaban [Xarelto] 20 mg PO DAILY 05/12/16 [History] Simvastatin [Zocor] 20 mg PO DAILY 05/12/16 [History] Sotalol HCl [Betapace] 120 mg PO BID 05/12/16 [History] Zolpidem [Ambien] 10 mg PO HS 05/12/16 [History] Fluticasone Propionate Nasal [Flonase] 1 spray NS DAILY 04/25/17 [History] Fluticasone/Vilanterol [Breo Ellipta 100-25 Mcg INH] 1 puff IH DAILY 04/25/17 [ History] GlipiZIDE [Glipizide ER] 10 mg PO BID 04/25/17 [History] HYDROcodone/Acet 5/325 mg [[place] 5-325 mg] 1 tab PO Q4H PRN #42 tab 04/25/17 [Rx ] Insulin Glargine,Hum.rec.anlog [Lantus Solostar] 20 unit SQ HS 04/25/17 [History ] Montelukast [Singulair] 10 mg PO DAILY 04/25/17 [History] Omeprazole [PriLOSEC] 40 mg PO DAILY 04/25/17 [History] Albuterol Sulfate [Albuterol Inhaler] 0 puff IH Q6HR 7 Days #1 vial 04/28/17 [Rx ] Cefuroxime PO [Ceftin] 500 mg PO Q12HR 5 Days #5 tablet 04/28/17 [Rx] Doxycycline 100 mg PO BID 7 Days #14 capsule 04/28/17 [Rx] amLODIPine [Norvasc] 10 mg PO DAILY #60 tablet 04/28/17 [Rx] predniSONE [PredniSONE] 10 mg PO AD #30 tablet 04/28/17 [Rx] Allergies/Adverse Reactions: 3 Allergy/AdvReac Type Severity Reaction Status Date / Time No Known Allergies Allergy Verified 04/26/17 05:59 Date of admission: 04/26/17 10:07 Primary care physician: Millie Wright Consults: 04/26/17 10:28 Consult to Nurse Navigator [CONS] Routine Comment: - Patient Status Disposition: Home, Self-Care Condition: Good Overall status at discharge: patient is back to baseline - Discharge Instructions Instructions: Chronic Obstructive Pulmonary Disease (DC), Pneumonia (DC) Follow Up With: Georgie Farr CNP [Primary Care Provider] - 05/10/17 11:00 am Additional Instructions: GET A REPEAT CT OF YOUR CHEST IN 6 WEEKS TO ENSURE CLEARANCE OF OPACITY IN THE RIGHT UPPER LOBE OF LUNG. - Diet and Activity Activity: increase activity as tolerated Diet: advance to your usual diet Hospital course: Mr. Rosario is a 67 year old male male with history of COPD, atrial fibrillation on xarelto, COPD no oxygen dependency and s/p nasal polyp surgery yesterday by ENT, who presents to the ER with a chief complaint of developed sudden onset of shortness of breath overnight. Pt was found to have pneumonia and COPD Exacerbation. He was treated with abx, albuterol and steroids with improvement. His BP was elevated, Norvasc was added. He is stable for dc home. - Time Spent with Patient Total time spent providing and/or coordinating discharge services: - Constitutional Vitals: Temp Pulse Resp BP Pulse Ox 98.3 F 80 16 161/89 94 04/28/17 10:45 04/28/17 10:45 04/28/17 10:52 04/28/17 10:45 04/28/17 10:52 General appearance: Present: A&O X 3, pleasant, obese - Head Head exam: Present: atraumatic, normocephalic - Eye Eye exam: Present: PERRL, conjuntiva pink, sclera anicteric Pupils: Present: PERRL - Neck Neck exam general surgery: Present: supple, trachea midline. Absent: lymphadenopathy - Respiratory Respiratory exam: Present: CTAB. Absent: accessory muscle use, rales, rhonchi, wheezes - Cardiovascular Cardiovascular exam: Present: RRR, +S1, +S2. Absent: diastolic murmur, gallop, rubs, systolic murmur - GI/Abdominal GI/Abdominal exam: Present: normal bowel sounds, soft, no peritoneal signs. Absent: distended, tenderness - Extremities Exam Extremities exam: Present: warm, radial pulses palpable and symmetrical. Absent : calf tenderness, cyanotic, pedal edema - Neurological Exam Neurological exam: Present: CN II-XII intact, oriented X3, no focal deficits. Absent: pronater drift, facial droop, speech deficit - Skin Skin exam: Present: dry, intact
[2017-04-28] MEDS ORDERED: *HR* Rivaroxaban 10 MG TABLET PO SCH (17:00)
[2017-05-04] MEDS ORDERED: predniSONE 10 MG TABLET PO SCH (09:00)
== END 2017-04-28 16:05 | disposition home or self-care (01) | DRG 190 ==
LOC: 3ANU 05:58 → EMEROO 05:58 → 3ANU 09:26
PROVIDERS: ADMIT Internal Medicine Nephrology; ATTEND Internal Medicine

== ENCOUNTER 2018-02-19 15:16 | Inpatient (IN) ==
[2018-02-19] MEDS ORDERED: Isovue-370 500 ML INFUS..BTL IV ONE (15:35)
--- NOTE | 2018-02-19 15:40 | Emergency Department Note ---
Disposition Clinical Impression: Atrial fibrillation with RVR Dyspnea Qualifiers: Dyspnea type: shortness of breath Qualified Code(s): R06.02 - Shortness of breath; R06.00 - Dyspnea, unspecified; R06.01 - Orthopnea Disposition: Admitted As Inpatient Condition: Fair Arrhythmia/Palpitations HPI - General Chief Complaint: ED Arrhythmia/Palpitations Stated Complaint: "afib,dafne sent by " Time Seen by Provider: 02/19/18 15:26 Source: patient Mode of arrival: private vehicle Limitations: no limitations Nursing Notes Reviewed: Yes Vital Signs Reviewed: Yes - History of Present Illness HPI Narrative: 68-year-old male history of atrial fibrillation on sotalol, has been off his anticoagulation for over 2 months, diabetes, hypertension, hyperlipidemia who presents to the ER from his primary care provider's office due to shortness of breath. States shortness breath for the last 2-3 days. Has had a cough during that time. States that he feels like he has not been sleeping well and feels like his breathing is regular night which makes him wake up and become anxious. He reports shortness of breath at rest or with any activity which is not usual for him. He was seen by his primary care provider today and found to be in A. fib RVR. Onset (ago): day(s) Duration: constant Arrhythmia History: atrial fibrillation Associated symptoms: Reports: chest pain, shortness of breath - Related Data Home Medications Medication Instructions Recorded Confirmed Fish Oil/Dha/Epa [Fish Oil 1,200 1,200 mg PO BID 05/12/16 04/26/17 mg Fish Oil] Losartan/Hydrochlorothiazide 1 tab PO DAILY 05/12/16 04/26/17 [Hyzaar 100-25 Tablet] Metformin HCl [Glucophage Xr] 750 mg PO BID 05/12/16 04/26/17 Rivaroxaban [Xarelto] 20 mg PO DAILY 05/12/16 04/26/17 Simvastatin [Zocor] 20 mg PO DAILY 05/12/16 04/26/17 Sotalol HCl [Betapace] 120 mg PO BID 05/12/16 04/26/17 Zolpidem [Ambien] 10 mg PO HS 05/12/16 04/26/17 Fluticasone Propionate Nasal 1 spray NS DAILY 04/25/17 04/26/17 [Flonase] Fluticasone/Vilanterol [Breo 1 puff IH DAILY 04/25/17 04/26/17 Ellipta 100-25 Mcg INH] GlipiZIDE [Glipizide ER] 10 mg PO BID 04/25/17 04/26/17 Insulin Glargine,Hum.rec.anlog 20 unit SQ HS 04/25/17 04/26/17 [Lantus Solostar] Montelukast [Singulair] 10 mg PO DAILY 04/25/17 04/26/17 Omeprazole [PriLOSEC] 40 mg PO DAILY 04/25/17 04/26/17 Previous Rx's Medication Instructions Recorded HYDROcodone/Acet 5/325 mg [[place] 1 tab PO Q4H PRN #42 tab 04/25/17 5-325 mg] Albuterol Sulfate [Albuterol 0 puff IH Q6HR 7 Days #1 vial 04/28/17 Inhaler] amLODIPine [Norvasc] 10 mg PO DAILY #60 tablet 04/28/17 Allergies Allergy/AdvReac Type Severity Reaction Status Date / Time No Known Allergies Allergy Verified 04/26/17 05:59 All systems ED: reviewed and negative except as stated. Constitutional: Denies: fever Cardiovascular: Reports: chest pain Respiratory: Reports: cough, dyspnea Gastrointestinal: Denies: abdominal pain, nausea, vomiting Past Medical History - Past Medical History Attestation: Yes The following information was validated with the patient. Source: patient Medical history: Reports: arthritis, atrial fibrillation, diabetes, GERD, hyperlipidemia, hypertension Psychiatric history: Reports: no psych history - Social History Smoking Status: Former smoker Smokeless Tobacco Status: No Alcohol use: Reports: none Drug use: Reports: none Physical Exam - General Limitations: no limitations General appearance: alert, in no apparent distress - Head Head exam: atraumatic, normocephalic - Eye Eye exam: Present: normal appearance - ENT ENT exam: normal exam - Neck Neck exam: Present: normal inspection - Chest Chest inspection: Present: normal inspection, symmetric chest wall rise - Respiratory Respiratory exam: Present: normal lung sounds bilaterally - Cardiovascular Cardiovascular exam: Present: tachycardia, irregular rhythm, normal heart sounds - Abdominal Exam Abdominal exam: Present: soft, Non-Tender. Absent: tenderness, distention, rigidity - Extremities Exam Extremities exam: Present: normal inspection, full ROM - Expanded Upper Extremity Exam Shoulder exam: Present: normal inspection, full ROM Arm exam: Present: normal inspection, full ROM Elbow exam: Present: normal inspection, full ROM Forearm/Wrist exam: Present: normal inspection, full ROM Hand exam: Present: normal inspection, full ROM - Expanded Lower Extremity Exam Hip/Pelvis exam: Present: normal inspection, full ROM Upper leg exam: Present: normal inspection, full ROM Knee exam: Present: normal inspection, full ROM Lower leg exam: Present: normal inspection, full ROM Ankle exam: Present: normal inspection, full ROM Foot/toe exam: Present: normal inspection, full ROM - Skin Skin exam: Present: warm, dry Course Course Narrative: Patient seen and examined. Vital signs reviewed. Noted to be in A. fib RVR. Given noncompliance with his anticoagulation plan for CTA, labs, admission. - Reevaluation(s) Reevaluation #1: Discussed results of imaging labs with the patient. Plan for Cardizem bolus and drip for his A. fib RVR. Vital Signs Temperature 97.8 F 02/19/18 15:19 Pulse Rate 119 02/19/18 15:19 Respiratory Rate 23 02/19/18 15:19 Blood Pressure 158/90 02/19/18 15:19 O2 Sat by Pulse Oximetry 97 02/19/18 15:19 Temperature 97.8 F 02/19/18 15:42 Pulse Rate 121 02/19/18 15:42 Respiratory Rate 24 02/19/18 15:42 Blood Pressure 143/101 02/19/18 15:42 O2 Sat by Pulse Oximetry 100 02/19/18 15:42 Oxygen Delivery Oxygen Delivery Room Air Arrhythmia/Palpitations - [facility] Narrative Medical decision making narrative: 68-year-old male presenting with dyspnea for 3 days. Found to be in A. fib RVR today at his primary care provider's office. Heart rate in the 120s here was a stable blood pressure. EKG consistent with A. fib RVR. CTA due to noncompliance on his anticoagulation. Negative for pulmonary embolism. Labs are grossly unremarkable. Patient ordered Cardizem bolus and drip. Admitted to the hospital service. - Lab Data Lab results reviewed: Yes I reviewed the patient's lab results. Result diagrams: 02/19/18 15:21 02/19/18 15:21 Lab Results 02/19/18 02/19/18 02/19/18 Range/Units 15:21 15:21 15:35 WBC 10.2 (4.3-11.1) K/mcL RBC 5.20 (4.19-5.50) M/mcL Hgb 16.0 (12.9-16.9) g/dL Hct 46.1 (37.5-50.1) % MCV 88.7 (83.0-100.0) fL MCH 30.8 (28.0-33.3) pg MCHC 34.7 (31.6-35.5) g/dL RDW 12.3 (11.5-14.5) % Plt Count 271 (140-400) K/mcL MPV 10.4 (9.4-12.4) fL Immature Gran % 0.3 (0-4) % Seg Neutrophils % 58.8 % Lymphocytes % 30.9 % Monocytes % 7.1 % Eosinophils % 2.1 % Basophils % 0.8 % Neutrophils # 6.0 (1.6-8.9) K/mcL Lymphocytes # 3.2 (0.6-4.6) K/mcL Monocytes # 0.7 (0.0-1.3) K/mcL Eosinophils # 0.2 (0.0-0.6) K/mcL Basophils # 0.1 (0.0-0.2) K/mcL PT 10.5 (9.4-12.1) Seconds INR 0.9 APTT 34.9 (26.0-36.0) Seconds Sodium 137 (136-145) mEq/L Potassium 4.7 (3.5-5.1) mEq/L Chloride 104 (98-107) mEq/L Carbon Dioxide 23 (23-29) mEq/L BUN 18 (8-23) mg/dL Creatinine 0.95 (0.70-1.30) mg/dL Est GFR ( Amer) > 60 (> 60) Est GFR (Non-Af Amer) > 60 (> 60) BUN/Creatinine Ratio 19 (6-26) Glucose 194 H (70-105) mg/dL Calculated Osmolality 291 (280-300) Calcium 10.0 (8.6-10.3) mg/dL Troponin I < 0.03 (< 0.04) ng/mL TSH 1.786 (0.340-5.600) mcIU/mL - Radiology Data Radiology results reviewed: Yes I reviewed the patient's radiology results. Chest CTA 02/19/18 15:35 IMPRESSION: No evidence of pulmonary embolism or acute pulmonary abnormality. Minimal dependent edema or atelectasis noted in the posterior lung bases bilaterally. Incidental note of probable gallstones without gallbladder wall thickening. D/ / Sidney Padilla MD / Sidney Padilla MD Interpreting Provider: Sidney Padilla MD - EKG Data EKG attestation: Yes I reviewed and interpreted this EKG. EKG results narrative: EKG demonstrates atrial fibrillation with a rate of 110. Normal axis. Normal intervals. Normal R-wave progression. There is ST depression in lead 1, nonspecific ST-T wave changes in leads 2 and 3, isolated ST elevation in lead aVR as well as nonspecific ST-T wave changes in his lateral leads. No significant changes from previous EKG with the exception of ST depression from prior EKG dated 04/26/17. S.B.Shraddha - Otis.Cecy Situation: Demographics, MOA Background: Presenting Complaint, Relevant PMH, Meds, & Allergies Assessment: Course and respsone to treatment, Exam Concerns, Patient/Family Expectation, Pertinant Lab Results Recommendation: Barrier(s) to disposition, Recommendation based on pending studies, treatments, or consults SRocíoBBonnie Report Given to: Dr. Gloria Figueroa Repor Time: 17:32
[2018-02-19] MEDS ORDERED: 0.9 % Sodium Chloride 500 ML IVC ONE (15:42)
[2018-02-19 15:56] LABS: Basophils # 0.1 K/mcL (0.0-0.2); Basophils % 0.8 %; Eosinophils # 0.2 K/mcL (0.0-0.6); Eosinophils % 2.1 %; Hematocrit 46.1 % (37.5-50.1); Immature Granulocytes % 0.3 % (0-4); Lymphocytes # 3.2 K/mcL (0.6-4.6); Lymphocytes % 30.9 %; Mean Corpuscular HGB Conc 34.7 g/dL (31.6-35.5); Mean Corpuscular Hemoglobin 30.8 pg (28.0-33.3); Mean Corpuscular Volume 88.7 fL (83.0-100.0); Mean Platelet Volume 10.4 fL (9.4-12.4); Monocytes # 0.7 K/mcL (0.0-1.3); Monocytes % 7.1 %; Platelet Count 271 K/mcL (140-400); Red Cell Distribution Width 12.3 % (11.5-14.5); Segmented Neutrophils % 58.8 %
[2018-02-19 16:02] LABS: INR 0.9; Prothrombin Time 10.5 Seconds (9.4-12.1)
[2018-02-19 16:05] LABS: Activated Partial Thrombo Time 34.9 Seconds (26.0-36.0)
[2018-02-19 16:13] LABS: BUN/Creatinine Ratio 19 (6-26); Blood Urea Nitrogen 18 mg/dL (8-23); Carbon Dioxide 23 mEq/L (23-29); Chloride 104 mEq/L (98-107); Glucose 194 mg/dL (70-105); Osmolality,Calculated 291 (280-300); Potassium 4.7 mEq/L (3.5-5.1); Sodium 137 mEq/L (136-145); Troponin I < 0.03 ng/mL (< 0.04); eGFR For Non-African Americans > 60 (> 60)
[2018-02-19 16:26] LABS: Thyroid Stimulating Hormone 1.786 mcIU/mL (0.340-5.600)
--- NOTE | 2018-02-19 17:06 | Emergency Department Note ---
Disposition Clinical Impression: Atrial fibrillation with RVR Disposition: Still a Patient Forms: ED Satisfaction Letter General Adult HPI - General Chief complaint: ED Shortness of Breath/Dyspnea Stated complaint: "afib,dafne sent by " Time Seen by Provider: 02/19/18 15:26 Source: patient Mode of arrival: private vehicle Limitations: no limitations - History of Present Illness Pain Scale: 0 - Related Data Home Medications Medication Instructions Recorded Confirmed Fish Oil/Dha/Epa [Fish Oil 1,200 1,200 mg PO BID 05/12/16 04/26/17 mg Fish Oil] Losartan/Hydrochlorothiazide 1 tab PO DAILY 05/12/16 04/26/17 [Hyzaar 100-25 Tablet] Metformin HCl [Glucophage Xr] 750 mg PO BID 05/12/16 04/26/17 Rivaroxaban [Xarelto] 20 mg PO DAILY 05/12/16 04/26/17 Simvastatin [Zocor] 20 mg PO DAILY 05/12/16 04/26/17 Sotalol HCl [Betapace] 120 mg PO BID 05/12/16 04/26/17 Zolpidem [Ambien] 10 mg PO HS 05/12/16 04/26/17 Fluticasone Propionate Nasal 1 spray NS DAILY 04/25/17 04/26/17 [Flonase] Fluticasone/Vilanterol [Breo 1 puff IH DAILY 04/25/17 04/26/17 Ellipta 100-25 Mcg INH] GlipiZIDE [Glipizide ER] 10 mg PO BID 04/25/17 04/26/17 Insulin Glargine,Hum.rec.anlog 20 unit SQ HS 04/25/17 04/26/17 [Lantus Solostar] Montelukast [Singulair] 10 mg PO DAILY 04/25/17 04/26/17 Omeprazole [PriLOSEC] 40 mg PO DAILY 04/25/17 04/26/17 Previous Rx's Medication Instructions Recorded HYDROcodone/Acet 5/325 mg [[place] 1 tab PO Q4H PRN #42 tab 04/25/17 5-325 mg] Albuterol Sulfate [Albuterol 0 puff IH Q6HR 7 Days #1 vial 04/28/17 Inhaler] Cefuroxime PO [Ceftin] 500 mg PO Q12HR 5 Days #5 tablet 04/28/17 Doxycycline 100 mg PO BID 7 Days #14 capsule 04/28/17 amLODIPine [Norvasc] 10 mg PO DAILY #60 tablet 04/28/17 predniSONE [PredniSONE] 10 mg PO AD #30 tablet 04/28/17 Allergies Allergy/AdvReac Type Severity Reaction Status Date / Time No Known Allergies Allergy Verified 04/26/17 05:59 Constitutional: Denies: fever Cardiovascular: Reports: chest pain Respiratory: Reports: cough, dyspnea Gastrointestinal: Denies: abdominal pain, nausea, vomiting Past Medical History - Past Medical History Medical history: Reports: arthritis, atrial fibrillation, diabetes, GERD, hyperlipidemia, hypertension Psychiatric history: Reports: no psych history - Social History Smoking Status: Former smoker Smokeless Tobacco Status: No Alcohol use: Reports: none Drug use: Reports: none Physical Exam - General Limitations: no limitations General appearance: alert, in no apparent distress Course Vital Signs Temperature 97.8 F 02/19/18 15:19 Pulse Rate 119 02/19/18 15:19 Respiratory Rate 23 02/19/18 15:19 Blood Pressure 158/90 02/19/18 15:19 O2 Sat by Pulse Oximetry 97 02/19/18 15:19 Temperature 97.8 F 02/19/18 15:42 Pulse Rate 121 02/19/18 15:42 Respiratory Rate 24 02/19/18 15:42 Blood Pressure 143/101 02/19/18 15:42 O2 Sat by Pulse Oximetry 100 02/19/18 15:42 Oxygen Delivery Oxygen Delivery Room Air Medical Decision Making - Lab Data Result diagrams: 02/19/18 15:21 02/19/18 15:21 Lab Results 02/19/18 02/19/18 02/19/18 Range/Units 15:21 15:21 15:35 WBC 10.2 (4.3-11.1) K/mcL RBC 5.20 (4.19-5.50) M/mcL Hgb 16.0 (12.9-16.9) g/dL Hct 46.1 (37.5-50.1) % MCV 88.7 (83.0-100.0) fL MCH 30.8 (28.0-33.3) pg MCHC 34.7 (31.6-35.5) g/dL RDW 12.3 (11.5-14.5) % Plt Count 271 (140-400) K/mcL MPV 10.4 (9.4-12.4) fL Immature Gran % 0.3 (0-4) % Seg Neutrophils % 58.8 % Lymphocytes % 30.9 % Monocytes % 7.1 % Eosinophils % 2.1 % Basophils % 0.8 % Neutrophils # 6.0 (1.6-8.9) K/mcL Lymphocytes # 3.2 (0.6-4.6) K/mcL Monocytes # 0.7 (0.0-1.3) K/mcL Eosinophils # 0.2 (0.0-0.6) K/mcL Basophils # 0.1 (0.0-0.2) K/mcL PT 10.5 (9.4-12.1) Seconds INR 0.9 APTT 34.9 (26.0-36.0) Seconds Sodium 137 (136-145) mEq/L Potassium 4.7 (3.5-5.1) mEq/L Chloride 104 (98-107) mEq/L Carbon Dioxide 23 (23-29) mEq/L BUN 18 (8-23) mg/dL Creatinine 0.95 (0.70-1.30) mg/dL Est GFR ( Amer) > 60 (> 60) Est GFR (Non-Af Amer) > 60 (> 60) BUN/Creatinine Ratio 19 (6-26) Glucose 194 H (70-105) mg/dL Calculated Osmolality 291 (280-300) Calcium 10.0 (8.6-10.3) mg/dL Troponin I < 0.03 (< 0.04) ng/mL TSH 1.786 (0.340-5.600) mcIU/mL Critical Care Time Critical Care Time: No Attestation Statement - Attestation Attestation: I examined this patient and my medical decision-making was reviewed with the Resident Physician. I agree with the documented findings, disposition and treatment plan as described except to the extent set forth below. 68-year-old male presents emergency room for A. fib issues. Patient has a history of underlying atrial fibrillation. States over the past couple weeks he is having increasing shortness of breath as well as palpitations and is able to feel like his heart is out of rhythm more so than normal. He denies any chest pain. He does admit to some fatigue and weakness. Upon arrival, patient had a rate in the low 110-120 range. His blood pressures have been stable. He has been compliant with sotalol. He takes aspirin daily. He does not take any other blood thinners. He denies any chest pain. He does admit to this increasing shortness of breath. We will do a CTA of the chest to evaluate for any possible pulmonary embolus as well. We will consult with cardiology as far as medication adjustments.
--- NOTE | 2018-02-19 19:18 | Internal Med History&Physical ---
Date of Encounter: 02/19/18 Time of Encounter: 19:18 Internal Medicine - H&P: HPI Admitted From: Home Plans for Post Hospital Care: Home History of present illness: Mr. Rosario is a 68 year old male with past medical history of Afib, Type II DM, HTN, HLD, former smoker who presents with difficulty breathing. [Pt reports having increasing SOB past couple of dyas He also reports orthopnea and difficulty sleeping duet not being able to breath. He states he was on Xarelto for his Afib but he stopped taking about 8 months ago following a sinus infection. He states he didn't like some of the side effects he read about. In ED CBC and CMp are with in normal limits. troponin <0.03. glucose 194. TSH 1.786. CTA chest CT/CT angio chest IMPRESSION: No evidence of pulmonary embolism or acute pulmonary abnormality. Minimal dependent edema or atelectasis noted in the posterior lung bases bilaterally. Incidental note of probable gallstones without gallbladder wall thickening. Past Med Surg Social Fam HX - Past Medical History Medical history: arthritis, atrial fibrillation, diabetes, GERD, hyperlipidemia, hypertension Additional medical history: chronic back pain into left leg, DDD, spinal stenosis, spondylosis, Psychiatric history: no psych history - Past Surgical History Additional surgical history: oral surgery, broken hand-right, loop recorder implant-02/17/2014. loop computer forensics examiner removed-03/2016, NASAL POLUPS REMOVED 04/25/17 - Social History Smoking Status: Former smoker Smokeless Tobacco Status: No Alcohol use: none Drug use: none Internal Medicine - H&P: Meds Fish Oil/Dha/Epa [Fish Oil 1,200 mg Fish Oil] 1,200 mg PO BID 05/12/16 [History] Losartan/Hydrochlorothiazide [Hyzaar 100-25 Tablet] 1 tab PO DAILY 05/12/16 [History] Simvastatin [Zocor] 20 mg PO DAILY 05/12/16 [History] Sotalol HCl [Betapace] 120 mg PO BID 05/12/16 [History] Zolpidem [Ambien] 10 mg PO HS 05/12/16 [History] Fluticasone Propionate Nasal [Flonase] 1 spray NS DAILY 04/25/17 [History] Fluticasone/Vilanterol [Breo Ellipta 100-25 Mcg INH] 1 puff IH DAILY 04/25/17 [History] GlipiZIDE [Glipizide ER] 10 mg PO BID 04/25/17 [History] Insulin Glargine,Hum.rec.anlog [Lantus Solostar] 40 unit SQ HS 04/25/17 [History] Montelukast [Singulair] 10 mg PO DAILY 04/25/17 [History] Omeprazole [PriLOSEC] 40 mg PO DAILY 04/25/17 [History] Albuterol Sulfate [Albuterol Inhaler] 2 puff IH Q6HR 02/19/18 [History] Metformin HCl [Glucophage] 1,000 mg PO BID 02/19/18 [History] amLODIPine [Norvasc] 5 mg PO DAILY 02/19/18 [History] Allergy/AdvReac Type Severity Reaction Status Date / Time No Known Allergies Allergy Verified 04/26/17 05:59 All Systems PM: A 10-system review of systems was performed and is negative for pertinent findings except as documented above in the HPI. - Constitutional Vitals: Temp Pulse Resp BP Pulse Ox 97.3 F L 90 18 132/96 97 02/19/18 18:53 02/19/18 18:53 02/19/18 18:53 02/19/18 18:53 02/19/18 18:53 General appearance: Present: A&O X 3, morbidly obese, no acute distress Exam: . - Head Head exam: Present: atraumatic, normocephalic - Eye Eye exam: Present: PERRL, conjuntiva pink, sclera anicteric Pupils: Present: PERRL - Neck Neck exam general surgery: Present: supple, trachea midline. Absent: lymphadenopathy - Respiratory Respiratory exam: Present: CTAB. Absent: accessory muscle use, rales, rhonchi, wheezes - Cardiovascular Cardiovascular exam: Present: irregular rhythm, +S1, +S2. Absent: diastolic murmur, gallop, rubs, systolic murmur - GI/Abdominal GI/Abdominal exam: Present: normal bowel sounds, soft, no peritoneal signs. Absent: distended, tenderness - Extremities Exam Extremities exam: Present: pedal edema, warm, radial pulses palpable and symmetrical. Absent: calf tenderness, cyanotic Additional comments: trace edema - Neurological Exam Neurological exam: Present: CN II-XII intact, oriented X3, no focal deficits. Absent: pronater drift, facial droop, speech deficit - Skin Skin exam: Present: dry, intact Internal Med - H&P Results - Labs CBC & Chem 7: 02/19/18 15:21 02/19/18 15:21 Labs: Short CBC 02/19/18 Range/Units 15:21 WBC 10.2 (4.3-11.1) K/mcL Hgb 16.0 (12.9-16.9) g/dL Hct 46.1 (37.5-50.1) % Plt Count 271 (140-400) K/mcL Neutrophils # 6.0 (1.6-8.9) K/mcL BMP 02/19/18 15:21 Sodium 137 Potassium 4.7 Chloride 104 Carbon Dioxide 23 BUN 18 Creatinine 0.95 Glucose 194 H Calcium 10.0 Cardiac Enzymes 02/19/18 Range/Units 15:21 Troponin I < 0.03 (< 0.04) ng/mL - Impressions ITS Impressions Chest CTA 02/19/18 15:35 IMPRESSION: No evidence of pulmonary embolism or acute pulmonary abnormality. Minimal dependent edema or atelectasis noted in the posterior lung bases bilaterally. Incidental note of probable gallstones without gallbladder wall thickening. D/ / Sidney Padilla MD / Sidney Padilla MD Interpreting Provider: Sindey Padilla MD - Assessment and plan (1) Atrial fibrillation with RVR Current Visit: Yes Status: Acute Assessment and plan: Sotalol. Not complaint on Xarelto and states he refuses to take it. Pt states he has not taken it for 8 to 12 months. On Cardizem gtt. Consider cardiology consult in AM. Will check echo. (2) Dyspnea Current Visit: Yes Status: Acute Assessment and plan: Possibly due to some pulmonary edema from afib. Will give lasix 40 mg IV once and reassess in am. CTA chest neg for PE of PNA. Qualifiers: Dyspnea type: shortness of breath Qualified Code(s): R06.02 - Shortness of breath; R06.00 - Dyspnea, unspecified; R06.01 - Orthopnea (3) Hypertension Current Visit: No Status: Acute Assessment and plan: Hyzaar and Sotalol. Qualifiers: Hypertension type: essential hypertension Qualified Code(s): I10 - Essential (primary) hypertension (4) Diabetes Current Visit: No Status: Chronic Assessment and plan: Metformin, Glipizide, and will add SSI. Lantus 40 units QHS. Qualifiers: Diabetes mellitus type: type 2 Diabetes mellitus termite exterminator insulin use: with termite exterminator use Diabetes mellitus complication status: without complication Qualified Code(s): E11.9 - Type 2 diabetes mellitus without complications; Z79.4 - FPC (current) use of insulin; Z79.4 - FPC (current) use of insulin; Z79.4 - FPC (current) use of insulin; Z79.4 - FPC (current) use of insulin (5) Hyperlipidemia Current Visit: No Status: Chronic Assessment and plan: Zocor Qualifiers: Hyperlipidemia type: mixed hyperlipidemia Qualified Code(s): E78.2 - Mixed hyperlipidemia - Time Spent With Patient Total time spent is greater than 50% in coordination of care (as documented) at patient's floor/unit and/or counseling patient: 25 - 35 minutes
[2018-02-19] MEDS ORDERED: Acetaminophen 325 MG TABLET PO PRN (20:41)
[2018-02-19] MEDS ORDERED: Naloxone 0.4 MG/ML INJ IVP PRN (20:41)
[2018-02-19] MEDS ORDERED: Furosemide 40 MG/4 ML VIAL IVP ONE (20:44)
[2018-02-19] MEDS ORDERED: *HR* Heparin 5,000 UNIT/ML VIAL IVP PRN ×2 (20:45)
[2018-02-19] MEDS ORDERED: *HR* Heparin 5,000 UNIT/ML VIAL IVP ONE (20:45)
[2018-02-19] MEDS ORDERED: *HR* Metformin 500 MG TABLET PO SCH (21:00)
[2018-02-19 21:30] LABS: Hematocrit 43.8 % (37.5-50.1); Hemoglobin 15.3 g/dL (12.9-16.9); Mean Corpuscular HGB Conc 34.9 g/dL (31.6-35.5); Mean Corpuscular Hemoglobin 30.7 pg (28.0-33.3); Mean Corpuscular Volume 87.8 fL (83.0-100.0); Mean Platelet Volume 10.5 fL (9.4-12.4); Platelet Count 253 K/mcL (140-400); Red Blood Count 4.99 M/mcL (4.19-5.50); Red Cell Distribution Width 12.6 % (11.5-14.5)
[2018-02-19] MEDS: *HR* GlipiZIDE XL (24 HR) 10 MG TABLET PO SCH (21:34)
[2018-02-19 21:37] LABS: Heparin anti-factor XA UFH 0.07 IU/mL (0.30-0.70); INR 1.1
[2018-02-19] MEDS: DHA PO SCH (21:51)
[2018-02-19] MEDS: EPA PO SCH (21:51)
[2018-02-19] MEDS: FISH OIL PO SCH (21:51)
[2018-02-19] MEDS: Insulin DETEMIR 100 UNIT/ML X5UNITS SQ SCH (22:02)
[2018-02-19] MEDS: Heparin 25,000 UNIT/500 ML D5W 25,000 UNIT/500 ML BAG IVC SCH (23:46)
[2018-02-20] MEDS ORDERED: Enoxaparin Weight Dosing SQ SCH (06:00)
[2018-02-20] MEDS: DHA PO SCH (08:45)
[2018-02-20] MEDS: EPA PO SCH (08:45)
[2018-02-20] MEDS: Fluticasone Propionate Nasal 50 MCG/SPRAY BOTTLE NS SCH (08:45)
[2018-02-20] MEDS: FISH OIL PO SCH (08:45)
[2018-02-20] MEDS: *HR* GlipiZIDE XL (24 HR) 10 MG TABLET PO SCH ×2 (08:49→21:44)
[2018-02-20] MEDS ORDERED: (Fluticasone/Vilanterol [Breo Ellipta 100-25 Mcg Inh]) IH SCH (09:00)
--- NOTE | 2018-02-20 09:35 | Internal Med Progress Note ---
Hospitalist Progress Note - Encounter Date of Encounter: 02/20/18 Time of Encounter: 09:30 - Exam Vitals: Temp Pulse Resp BP Pulse Ox 97.5 F L 104 18 107/89 97 02/20/18 06:55 02/20/18 06:55 02/20/18 06:55 02/20/18 06:55 02/20/18 06:55 Exam: Gen - Awake, alert, oriented x 3, no acute distress HEENT - NCAT, PERRLA, EOMI, hearing grossly intact, oropharynx benign CV - RRR, normal S1 and S2, no M/R/G, no BLE edema Resp - Normal WOB, CTAB, no W/R/R GI - Soft, NT/ND, no masses, normal bowel sounds, Skin - Warm, dry, no rashes/lesions/ulcers Psych - Normal mood and affect, no depression or anxiety - Assessment and Plan (1) Atrial fibrillation with RVR Current Visit: Yes Status: Acute Assessment and Plan: On Cardizem drip. Patient is on sotalol at home Had echo this am which came back WNL. seen by cardiology who want patient to have a nuclear stress test Will keep on cardizem drip for now. Patient has previously discontinued anticoagulation by himself. Amenable to resuming anticoagulation and currently on heparin drip. Will transition to po xarelto (2) Hypertension Current Visit: No Status: Acute Assessment and Plan: Hyzaar and Sotalol. (3) Diabetes Current Visit: No Status: Chronic Assessment and Plan: Metformin, Glipizide, and will add SSI. Lantus 40 units QHS. Monitor fingersticks (4) Hyperlipidemia Current Visit: No Status: Chronic Assessment and Plan: Zocor (5) Dyspnea Current Visit: Yes Status: Acute Assessment and Plan: Possibly due to some pulmonary edema from afib. Will give lasix 40 mg IV once and reassess in am. CTA chest neg for PE of PNA. DVT Prophylaxis: On heparin drip - Time Spent with Patient Total time spent is greater than 50% in coordination of care (as documented) at patient's floor/unit and/or counseling patient: Internal Medicine: Result - Labs CBC & Chem 7: 02/19/18 20:58 02/19/18 15:21 Labs: Short CBC 02/19/18 02/19/18 Range/Units 15:21 20:58 WBC 10.2 9.7 (4.3-11.1) K/mcL Hgb 16.0 15.3 (12.9-16.9) g/dL Hct 46.1 43.8 (37.5-50.1) % Plt Count 271 253 (140-400) K/mcL Neutrophils # 6.0 (1.6-8.9) K/mcL BMP 02/19/18 15:21 Sodium 137 Potassium 4.7 Chloride 104 Carbon Dioxide 23 BUN 18 Creatinine 0.95 Glucose 194 H Calcium 10.0 Cardiac Enzymes 02/19/18 02/19/18 02/20/18 Range/Units 15:21 20:58 02:47 Troponin I < 0.03 < 0.03 < 0.03 (< 0.04) ng/mL 02/20/18 Range/Units 08:41 Troponin I < 0.03 (< 0.04) ng/mL - ABG Interpretation ABG results: PT/INR, D-dimer PT 12.0 Seconds (9.4-12.1) 02/19/18 20:58 - Impressions Impressions Chest CTA 02/19/18 15:35 IMPRESSION: No evidence of pulmonary embolism or acute pulmonary abnormality. Minimal dependent edema or atelectasis noted in the posterior lung bases bilaterally. Incidental note of probable gallstones without gallbladder wall thickening. D/ / Sidney Padilla MD / Sidney Padilla MD Interpreting Provider: Sidney Padilla MD Consult Discharge Plan - Plan Referrals: Georgie Farr, INSOLE TAPER [Primary Care Provider] - (2) Hypertension Qualifiers: Hypertension type: essential hypertension Qualified Code(s): I10 - Essential (primary) hypertension (3) Diabetes Qualifiers: Diabetes mellitus type: type 2 Diabetes mellitus jail insulin use: with jail use Diabetes mellitus complication status: without complication Qualified Code(s): E11.9 - Type 2 diabetes mellitus without complications; Z79.4 - field associate (current) use of insulin (4) Hyperlipidemia Qualifiers: Hyperlipidemia type: mixed hyperlipidemia Qualified Code(s): E78.2 - Mixed hyperlipidemia (5) Dyspnea Qualifiers: Dyspnea type: shortness of breath Qualified Code(s): R06.02 - Shortness of breath; R06.00 - Dyspnea, unspecified; R06.01 - Orthopnea
[2018-02-20] MEDS: Losartan/HCTZ 50-12.5 TABLET PO SCH (12:22)
--- NOTE | 2018-02-20 15:59 | Cardiology Consult Note ---
Date of Encounter: 02/20/18 Time of Encounter: 15:57 Assessment and Plan (1) Atrial fibrillation with RVR Current Visit: Yes Status: Acute Continue Cardizem drip until patient completes chemical stress test and switch to by mouth as tolerated/needed Currently on sotalol we will continue as previous prescribed Discussed with patient risks benefits and alternatives of continuing his anticoagulation and he has willing to resume it once again (2) Dyspnea Current Visit: Yes Status: Acute With mild symptoms of atypical angina possible angina equivalent dyspnea on exertion. We will pursue a chemical stress test to rule out ischemia. Echocardiogram obtained showing no major valvular abnormalities and a preserved ejection fraction Qualifiers: Dyspnea type: shortness of breath Qualified Code(s): R06.02 - Shortness of breath; R06.00 - Dyspnea, unspecified; R06.01 - Orthopnea Discussion w patient/family: The assessment and plan as outlined above was discussed with the patient and/or family members who expressed understanding and agreement. All questions were answered. Thank you for involving us in the care of your patient. Please call with any questions. History of Present Illness Consult date: 02/20/18 Consult reason: Chest Pain Chief complaint: Chest pain and Afib History of present illness: Mr. Rosario is a 68 year old male with history of diabetes, hypertension, hyper lipidemia, paroxysmal atrial fibrillation not taking xarelto last few months presents with chest pain. Patient describes atypical chest pain and exertional shortness of breath. EKG shows minimal ST depressions diffusely with negative cardiac markers. Past Med Surg Social Fam HX - Past Medical History Medical history: arthritis, atrial fibrillation, diabetes, GERD, hyperlipidemia, hypertension Additional medical history: chronic back pain into left leg, DDD, spinal stenosis, spondylosis, Psychiatric history: no psych history - Past Surgical History Additional surgical history: oral surgery, broken hand-right, loop recorder implant-02/17/2014. loop smt machine operator removed-03/2016, NASAL POLUPS REMOVED 04/25/17 - Social History Smoking Status: Former smoker Smokeless Tobacco Status: No Alcohol use: none Drug use: none Medications and Allergies Fish Oil/Dha/Epa [Fish Oil 1,200 mg Fish Oil] 1,200 mg PO BID 05/12/16 [History] Losartan/Hydrochlorothiazide [Hyzaar 100-25 Tablet] 1 tab PO DAILY 05/12/16 [History] Simvastatin [Zocor] 20 mg PO DAILY 05/12/16 [History] Sotalol HCl [Betapace] 120 mg PO BID 05/12/16 [History] Zolpidem [Ambien] 10 mg PO HS 05/12/16 [History] Fluticasone Propionate Nasal [Flonase] 1 spray NS DAILY 04/25/17 [History] Fluticasone/Vilanterol [Breo Ellipta 100-25 Mcg INH] 1 puff IH DAILY 04/25/17 [History] GlipiZIDE [Glipizide ER] 10 mg PO BID 04/25/17 [History] Insulin Glargine,Hum.rec.anlog [Lantus Solostar] 40 unit SQ HS 04/25/17 [History] Montelukast [Singulair] 10 mg PO DAILY 04/25/17 [History] Omeprazole [PriLOSEC] 40 mg PO DAILY 04/25/17 [History] Albuterol Sulfate [Albuterol Inhaler] 2 puff IH Q6HR 02/19/18 [History] Metformin HCl [Glucophage] 1,000 mg PO BID 02/19/18 [History] amLODIPine [Norvasc] 5 mg PO DAILY 02/19/18 [History] Allergy/AdvReac Type Severity Reaction Status Date / Time No Known Allergies Allergy Verified 04/26/17 05:59 All Systems Review: The remainder of the systems were reviewed and are negative Physical Examination General: Conversant, No Apparent Distress HEENT: Atraumatic, Normocephaly, Mucus Membranes Moist Neck: No JVD, Normal carotid pulses Cardiac: Reg Rate and Rhythm (Irregular irregular rythm), Normal S1 and S2, No Murmur Lungs: Normal Breath Sounds, No Wheeze, Rales, Rhonchi Neuro: Alert and responsive, No focal deficits noted Abdomen: Soft, Non-Tender Skin: No rashes noted on visualized skin Musculoskeletal: No Chest Wall Tenderness Extremities: No Clubbing, No Cyanosis, No Edema, Normal Pulses Results 02/19/18 20:58 02/19/18 15:21 Lab Results 02/19/18 02/19/18 02/19/18 15:21 15:21 15:35 WBC 10.2 Hgb 16.0 Hct 46.1 Plt Count 271 INR 0.9 APTT 34.9 Sodium 137 Potassium 4.7 Chloride 104 Carbon Dioxide 23 BUN 18 Creatinine 0.95 Glucose 194 H Calcium 10.0 Troponin I < 0.03 B-Natriuretic Peptide TSH 1.786 02/19/18 02/19/18 02/19/18 20:58 20:58 20:58 WBC 9.7 Hgb 15.3 Hct 43.8 Plt Count 253 INR 1.1 APTT Sodium Potassium Chloride Carbon Dioxide BUN Creatinine Glucose Calcium Troponin I < 0.03 B-Natriuretic Peptide TSH 02/20/18 02/20/18 02/20/18 02:47 08:41 08:41 WBC Hgb Hct Plt Count INR APTT Sodium Potassium Chloride Carbon Dioxide BUN Creatinine Glucose Calcium Troponin I < 0.03 < 0.03 B-Natriuretic Peptide 87 TSH Consult Discharge Plan - Plan Referrals: Georgie Farr CNP [Primary Care Provider] -
[2018-02-20] MEDS: Heparin 25,000 UNIT/500 ML D5W 25,000 UNIT/500 ML BAG IVC SCH (17:57)
[2018-02-20] MEDS: Budesonide/Formoterol 160/4.5 1 PUFF INH IH SCH (20:22)
[2018-02-20] MEDS: Insulin DETEMIR 100 UNIT/ML X5UNITS SQ SCH (21:52)
[2018-02-21] MEDS: Budesonide/Formoterol 160/4.5 1 PUFF INH IH SCH ×2 (07:55→22:23)
--- NOTE | 2018-02-21 08:25 | Internal Med Progress Note ---
Hospitalist Progress Note - Encounter Date of Encounter: 02/21/18 Time of Encounter: 08:20 - Exam Vitals: Temp Pulse Resp BP Pulse Ox 97.8 F 76 16 117/102 98 02/21/18 07:16 02/21/18 07:16 02/21/18 07:55 02/21/18 07:16 02/21/18 07:55 Exam: Gen - Awake, alert, oriented x 3, no acute distress HEENT - NCAT, PERRLA, EOMI, hearing grossly intact, oropharynx benign CV - RRR, normal S1 and S2, no M/R/G, no BLE edema Resp - Normal WOB, CTAB, no W/R/R GI - Soft, NT/ND, no masses, normal bowel sounds, Skin - Warm, dry, no rashes/lesions/ulcers Psych - Normal mood and affect, no depression or anxiety - Assessment and Plan (1) Atrial fibrillation with RVR Current Visit: Yes Status: Acute Assessment and Plan: On Cardizem drip. Patient is on sotalol at home Had echo this am which came back WNL. seen by cardiology who want patient to have a nuclear stress test Will keep on cardizem drip for now and continue sotalol. Patient has previously discontinued anticoagulation by himself. Amenable to resuming anticoagulation and currently on heparin drip. Will transition to po xarelto To complete nuclear stress test tomorrow with further recommendations to follow from cardiology regarding possible FRANSICO if patient stays in afib (2) Hypertension Current Visit: No Status: Acute Assessment and Plan: Hyzaar and Sotalol. (3) Diabetes Current Visit: No Status: Chronic Assessment and Plan: Metformin, Glipizide, and will add SSI. Lantus 40 units QHS. Monitor fingersticks (4) Hyperlipidemia Current Visit: No Status: Chronic Assessment and Plan: Zocor (5) Dyspnea Current Visit: Yes Status: Acute Assessment and Plan: Possibly due to some pulmonary edema from afib. Will give lasix 40 mg IV once and reassess in am. CTA chest neg for PE of PNA. DVT Prophylaxis: On heparin drip - Time Spent with Patient Total time spent is greater than 50% in coordination of care (as documented) at patient's floor/unit and/or counseling patient: Internal Medicine: Result - Labs CBC & Chem 7: 02/19/18 20:58 02/19/18 15:21 Labs: Cardiac Enzymes 02/20/18 Range/Units 08:41 Troponin I < 0.03 (< 0.04) ng/mL - ABG Interpretation ABG results: PT/INR, D-dimer PT 12.0 Seconds (9.4-12.1) 02/19/18 20:58 - Impressions Impressions Echocardiogram 02/20/18 20:43 Impressions: Atrial fibrillation, RVR. LVEF 55%. Indeterminate left venticular diastoic function RV size is not optimally visualized. Normal RV function. Mild tricuspid valve regurgitation. Mild pulmonic valve regurgitation. Consult Discharge Plan - Plan Referrals: Georgie Farr, CONVEYOR CONSOLE OPERATOR [Primary Care Provider] - (2) Hypertension Qualifiers: Hypertension type: essential hypertension Qualified Code(s): I10 - Essential (primary) hypertension (3) Diabetes Qualifiers: Diabetes mellitus type: type 2 Diabetes mellitus residential insulin use: with termite control service representative use Diabetes mellitus complication status: without complication Qualified Code(s): E11.9 - Type 2 diabetes mellitus without complications; Z79.4 - residential (current) use of insulin (4) Hyperlipidemia Qualifiers: Hyperlipidemia type: mixed hyperlipidemia Qualified Code(s): E78.2 - Mixed hyperlipidemia (5) Dyspnea Qualifiers: Dyspnea type: shortness of breath Qualified Code(s): R06.02 - Shortness of breath; R06.00 - Dyspnea, unspecified; R06.01 - Orthopnea
[2018-02-21] MEDS ORDERED: Regadenoson 0.4 MG/5 ML SYRINGE IVP ONE (08:30)
[2018-02-21] MEDS: *HR* GlipiZIDE XL (24 HR) 10 MG TABLET PO SCH (10:40)
[2018-02-21] MEDS: Fluticasone Propionate Nasal 50 MCG/SPRAY BOTTLE NS SCH (10:41)
[2018-02-21] MEDS: *HR* Enoxaparin 120 MG/0.8 ML SYRINGE SQ SCH ×2 (11:20→23:50)
[2018-02-21] MEDS: Losartan/HCTZ 50-12.5 TABLET PO SCH (11:20)
[2018-02-21] MEDS: Diltiazem CD (24hr) 180 MG CAPSULE PO SCH (14:10)
--- NOTE | 2018-02-21 14:44 | Cardiology Progress Note ---
Date of Encounter: 02/21/18 Time of Encounter: 13:30 Assessment and Plan (1) Atrial fibrillation with RVR Current Visit: Yes Status: Acute Per cardiology: -Known history of PAF. -Previously on sotalol and xarelto, however patient quit taking his medications. -Presented with a.fib RVR, cardizem drip was started. -Now rate controlled, average HR previous 12 hours noted to be 92, a.fib. -On therapeutic lovenox. -Per , patient was restarted on sotalol 120mg BID. Patient has received 3 total doses. -Initial ECG with a.fib, HR 100, QT 313/QTc 370ms. -ECG today with a.fib, HR 82. QT 385/QTc 424ms. -Will switch cardizem to oral, wean cardizem drip to off 2 hours after oral cardizem given. -If stress test is negative, can restart oral anticoagulation with xarelto. -Continue sotalol. Repeat ECG in am. -If remains in a.fib tomorrow, can consider FRANSICO/DCCV. Would require FRANSICO as patient had stopped taking his xarelto. (2) Dyspnea Current Visit: Yes Status: Acute Per cardiology: -Reports symptoms improved now that HR controlled. -2 day stress pending, will finish tomorrow. -TTE with LVEF preserved, no segmental wall motion abnormalities noted. Qualifiers: Dyspnea type: shortness of breath Qualified Code(s): R06.02 - Shortness of breath; R06.00 - Dyspnea, unspecified; R06.01 - Orthopnea Discussion w patient/family: The assessment and plan as outlined above was discussed with the patient who expressed understanding and agreement. All questions were answered. Thank you for involving us in the care of your patient. Please call with any questions. Discussed and reviewed with . Subjective Principal diagnosis: a.fib RVR Interval history: Patient denies chest pain. Reports shortness of breath is improved. Objective Vital Signs, Last 4 Hours Temp Pulse Resp BP Pulse Ox 02/21/18 10:50 97.7 F 121 16 121/87 96 General: Conversant, No Apparent Distress HEENT: Atraumatic, Normocephaly, Mucus Membranes Moist Neck: No JVD, Normal carotid pulses Cardiac: Normal S1 and S2, No Murmur, Other (Irregularly irregular ) Lungs: Normal Breath Sounds, No Wheeze, Rales, Rhonchi Neuro: Alert and responsive, No focal deficits noted Abdomen: Soft, Non-Tender Skin: No rashes noted on visualized skin Musculoskeletal: No Chest Wall Tenderness Extremities: No Clubbing, No Cyanosis, No Edema, Normal Pulses Results 02/19/18 20:58 02/19/18 15:21 Active Medications Acetaminophen (Tylenol) 650 mg PO Q6HR PRN PRN Reason: Mild Pain/Fever Stop: 08/21/18 20:42 Albuterol Sulfate (Albuterol Inhaler) 2 puff IH [id number] PRN PRN Reason: shortness of breath Stop: 08/22/18 00:01 Budesonide/Formoterol Fumarate (Symbicort) 1 puff IH BIDR [facility]; Protocol Stop: 08/22/18 22:01 Last Admin: 02/21/18 07:55 Dose: 1 puff Diltiazem HCl (Cardizem Cd) 180 mg PO DAILY [facility] Stop: 08/23/18 14:01 Last Admin: 02/21/18 14:10 Dose: 180 mg Enoxaparin Sodium (Lovenox) 120 mg 1 mg/kg (120 mg) SQ 0900,2100 [facility]; Protocol Stop: 08/23/18 11:16 Last Admin: 02/21/18 11:20 Dose: 120 mg Fluticasone Propionate (Flonase) 50 mcg NS DAILY [facility]; Protocol Stop: 08/22/18 09:01 Last Admin: 02/21/18 10:41 Dose: Not Given Glipizide (Glucotrol Xl) 10 mg PO BID [facility] Stop: 08/21/18 21:01 Last Admin: 02/21/18 10:40 Dose: 10 mg HCTZ/Losartan Potassium (Hyzaar 50/12.5) 2 each PO DAILY [facility] Stop: 08/22/18 09:01 Last Admin: 02/21/18 11:20 Dose: 2 each Diltiazem HCl 50 mg/ Sodium (Chloride) 50 mls @ 5 mls/hr IVC .Q10H [facility]; Protocol Stop: 08/21/18 17:16 Last Admin: 02/21/18 06:25 Dose: 7.5 mg/hr, 7.5 mls/hr Insulin Detemir (Levemir) 40 unit SQ HS [facility] Stop: 08/21/18 21:01 Last Admin: 02/20/18 21:52 Dose: 40 unit Metformin HCl (Glucophage) 1,000 mg PO BIDWM [facility] Stop: 08/23/18 17:01 Montelukast Sodium (Singulair) 10 mg PO DAILY [facility] Stop: 08/22/18 09:01 Last Admin: 02/21/18 10:40 Dose: 10 mg Naloxone HCl (Narcan) 0.4 mg IVP Q2MIN PRN PRN Reason: SEE COMMENTS Stop: 08/21/18 20:42 Omeprazole (Prilosec) 40 mg PO DAILY@0730 [facility] Stop: 08/22/18 07:31 Last Admin: 02/21/18 10:40 Dose: 40 mg Simvastatin (Zocor) 20 mg PO DAILY [facility]; Protocol Stop: 08/22/18 09:01 Last Admin: 02/21/18 10:40 Dose: 20 mg Sotalol HCl (Betapace) 120 mg PO BID [facility] Stop: 08/21/18 21:01 Last Admin: 02/21/18 10:40 Dose: 120 mg Zolpidem Tartrate (Ambien) 10 mg PO HS [facility]; Protocol Stop: 08/21/18 21:01 Last Admin: 02/20/18 21:44 Dose: 10 mg - Imaging and Cardiology Chest Xray: report reviewed Stress Test: pending Echo: report reviewed - EKG Interpretation EKG results cardiology: other (Telemetry reviewed with average HR previous 12 hours noted to be 92, a.fib. PVCs noted.) Consult Discharge Plan - Plan Referrals: Georgie Farr .NET DEVELOPER [Primary Care Provider] -
[2018-02-21] MEDS ORDERED: Dextrose Gel 15 GM/37.5 ML TUBE PO PRN ×2 (14:58)
[2018-02-21] MEDS ORDERED: D5% in Water 1,000 ML IVC PRN (14:58)
[2018-02-21] MEDS ORDERED: *HR* Dextrose 50 % in Water (Syg) 50 ML SYRINGE IVP PRN (14:58)
--- NOTE | 2018-02-21 15:58 | Electrocardiograph Report ---
[address] [address] Test Date: 2018-02-21 Pat Name: Cole Rosario Department: 111 Room: 2NE27 Gender: M [employer]: : 1950 Requested By: Cathy Mejia Order Number: [id number] Reading MD: Сергей Diallo Measurements Intervals [place] Rate: 82 P: ID: 0 QRS: 41 QRSD: 88 T: 5 QT: 385 QTc: 424 Interpretive Statements ATRIAL FIBRILLATION ABNORMAL RHYTHM ECG Electronically Signed On 02-21-2018 15:57:00 EDT by Сергей Diallo
[2018-02-21] MEDS: Insulin LISPRO 300 UNITS/3 ML VIAL SQ SCH ×2 (16:58→22:11)
[2018-02-21] MEDS ORDERED: *HR* Metformin 500 MG TABLET PO SCH (17:00)
[2018-02-21] MEDS ORDERED: *HR* Rivaroxaban 10 MG TABLET PO SCH (17:00)
[2018-02-21] MEDS: Insulin DETEMIR 100 UNIT/ML X5UNITS SQ SCH (22:05)
[2018-02-22] MEDS: Losartan/HCTZ 50-12.5 TABLET PO SCH (08:04)
[2018-02-22] MEDS: Diltiazem CD (24hr) 180 MG CAPSULE PO SCH (08:04)
[2018-02-22] MEDS: Insulin LISPRO 300 UNITS/3 ML VIAL SQ SCH ×4 (08:05→20:37)
[2018-02-22 08:34] LABS: Basophils # 0.1 K/mcL (0.0-0.2); Basophils % 0.6 %; Eosinophils # 0.2 K/mcL (0.0-0.6); Eosinophils % 2.2 %; Hematocrit 48.5 % (37.5-50.1); Hemoglobin 16.4 g/dL (12.9-16.9); Immature Granulocytes % 0.3 % (0-4); Lymphocytes # 3.1 K/mcL (0.6-4.6); Lymphocytes % 30.4 %; Mean Corpuscular HGB Conc 33.8 g/dL (31.6-35.5); Mean Corpuscular Hemoglobin 30.4 pg (28.0-33.3); Mean Corpuscular Volume 89.8 fL (83.0-100.0); Mean Platelet Volume 10.7 fL (9.4-12.4); Monocytes # 0.8 K/mcL (0.0-1.3); Monocytes % 8.2 %; Platelet Count 230 K/mcL (140-400); Red Cell Distribution Width 12.5 % (11.5-14.5); Segmented Neutrophils % 58.3 %
[2018-02-22 08:53] LABS: BUN/Creatinine Ratio 24 (6-26); Blood Urea Nitrogen 24 mg/dL (8-23); Calcium 9.3 mg/dL (8.6-10.3); Carbon Dioxide 22 mEq/L (23-29); Chloride 106 mEq/L (98-107); Glucose 150 mg/dL (70-105); Magnesium 1.8 mg/dL (1.6-2.6); Osmolality,Calculated 289 (280-300); Potassium 4.1 mEq/L (3.5-5.1); Sodium 136 mEq/L (136-145); eGFR For Non-African Americans > 60 (> 60)
[2018-02-22 09:12] LABS: Phosphorous 3.2 mg/dL (2.7-4.5)
[2018-02-22] MEDS: Fluticasone Propionate Nasal 50 MCG/SPRAY BOTTLE NS SCH (09:50)
[2018-02-22] MEDS: *HR* Enoxaparin 120 MG/0.8 ML SYRINGE SQ SCH (10:11)
[2018-02-22] MEDS: Budesonide/Formoterol 160/4.5 1 PUFF INH IH SCH ×2 (10:29→19:59)
--- NOTE | 2018-02-22 10:43 | Internal Med Progress Note ---
Hospitalist Progress Note - Encounter Date of Encounter: 02/22/18 Time of Encounter: 08:00 - Exam Vitals: Temp Pulse Resp BP Pulse Ox 98.4 F 86 16 103/77 96 02/21/18 21:10 02/22/18 05:47 02/22/18 05:47 02/22/18 05:47 02/22/18 05:47 Exam: Gen - Awake, alert, oriented x 3, no acute distress HEENT - NCAT, PERRLA, EOMI, hearing grossly intact, oropharynx benign CV - RRR, normal S1 and S2, no M/R/G, no BLE edema Resp - Normal WOB, CTAB, no W/R/R GI - Soft, NT/ND, no masses, normal bowel sounds, Skin - Warm, dry, no rashes/lesions/ulcers Psych - Normal mood and affect, no depression or anxiety - Assessment and Plan (1) Atrial fibrillation with RVR Current Visit: Yes Status: Acute Assessment and Plan: On Cardizem drip. Patient is on sotalol at home Had echo this am which came back WNL. seen by cardiology who want patient to have a nuclear stress test Will keep on cardizem drip for now and continue sotalol. Patient has previously discontinued anticoagulation by himself. Amenable to resuming anticoagulation and currently on heparin drip. Will transition to po xarelto To complete nuclear stress test today . Follow up stress test report. Cardiology plan for FRANSICO in am. NPO from midnight (2) Hypertension Current Visit: No Status: Acute Assessment and Plan: Hyzaar and Sotalol. (3) Diabetes Current Visit: No Status: Chronic Assessment and Plan: Metformin, Glipizide, and will add SSI. Lantus 40 units QHS. Monitor fingersticks (4) Hyperlipidemia Current Visit: No Status: Chronic Assessment and Plan: Zocor (5) Dyspnea Current Visit: Yes Status: Acute Assessment and Plan: Possibly due to some pulmonary edema from afib. Will give lasix 40 mg IV once and reassess in am. CTA chest neg for PE of PNA. - Time Spent with Patient Total time spent is greater than 50% in coordination of care (as documented) at patient's floor/unit and/or counseling patient: Internal Medicine: Result - Labs CBC & Chem 7: 02/22/18 08:15 02/22/18 08:15 - ABG Interpretation ABG results: PT/INR, D-dimer PT 12.0 Seconds (9.4-12.1) 02/19/18 20:58 Consult Discharge Plan - Plan Referrals: Georgie Farr HOTEL CONTROLLER [Primary Care Provider] - 02/28/18 10:15 am (2) Hypertension Qualifiers: Hypertension type: essential hypertension Qualified Code(s): I10 - Essential (primary) hypertension (3) Diabetes Qualifiers: Diabetes mellitus type: type 2 Diabetes mellitus fci insulin use: with fci use Diabetes mellitus complication status: without complication Qualified Code(s): E11.9 - Type 2 diabetes mellitus without complications; Z79.4 - alf (current) use of insulin (4) Hyperlipidemia Qualifiers: Hyperlipidemia type: mixed hyperlipidemia Qualified Code(s): E78.2 - Mixed hyperlipidemia (5) Dyspnea Qualifiers: Dyspnea type: shortness of breath Qualified Code(s): R06.02 - Shortness of breath; R06.00 - Dyspnea, unspecified; R06.01 - Orthopnea
--- NOTE | 2018-02-22 10:50 | Cardiology Progress Note ---
Date of Encounter: 02/22/18 Time of Encounter: 09:50 Assessment and Plan (1) Atrial fibrillation with RVR Current Visit: Yes Status: Acute Per cardiology: Previous records reviewed, -Known history of PAF. -Previously on sotalol and xarelto, however patient quit taking his medications. -Presented with a.fib RVR, cardizem drip was started. Status post 5 doses of sotalol 120 mg by mouth twice a day and current ECG shows A. fib and the 70s with QTC 435 ms. Stress test results pending. Patient will be NPO after midnight for possible FRANSICO cardioversion tomorrow. Regarding long-term anticoagulation, currently on Lovenox. Assuming stress tests with no abnormal findings plan to resume long-term anticoagulation today-- Xarelto. Discussion w patient/family: The assessment and plan as outlined above was discussed with the patient and/or family members who expressed understanding and agreement. All questions were answered. Thank you for involving us in the care of your patient. Please call with any questions. Subjective Principal diagnosis: a.fib RVR Interval history: Patient denies any chest pain or palpitations. Reports some mild baseline short ness of breath at rest. Reports completed second part of stress test today. Denies any active bleeding or blood loss. Objective Vital Signs, Last 4 Hours Pulse Resp BP Pulse Ox 02/22/18 08:19 96 02/22/18 05:47 86 16 103/77 96 General: Conversant, No Apparent Distress HEENT: Atraumatic, Normocephaly, Mucus Membranes Moist Neck: No JVD, Normal carotid pulses Cardiac: Normal S1 and S2, No Murmur, Other (Irregularly irregular) Lungs: Normal Breath Sounds, No Wheeze, Rales, Rhonchi Neuro: Alert and responsive, No focal deficits noted Abdomen: Soft, Non-Tender Skin: No rashes noted on visualized skin Musculoskeletal: No Chest Wall Tenderness Extremities: No Clubbing, No Cyanosis, No Edema, Normal Pulses Results 02/22/18 08:15 02/22/18 08:15 Lab Results 02/22/18 02/22/18 08:15 08:15 WBC 10.3 Hgb 16.4 Hct 48.5 Plt Count 230 Sodium 136 Potassium 4.1 Chloride 106 Carbon Dioxide 22 L BUN 24 H Creatinine 1.00 Glucose 150 H Calcium 9.3 Magnesium 1.8 - Imaging and Cardiology Stress Test: pending - EKG Interpretation EKG results cardiology: other (Atrial fibrillation on telemetry in the 70s to 80s) Consult Discharge Plan - Plan Referrals: Georgie Farr CNP [Primary Care Provider] - 02/28/18 10:15 am
--- NOTE | 2018-02-22 14:48 | Electrocardiograph Report ---
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
[2018-02-22] MEDS: *HR* Rivaroxaban 10 MG TABLET PO SCH (17:11)
[2018-02-22] MEDS: Insulin DETEMIR 100 UNIT/ML X5UNITS SQ SCH (20:37)
[2018-02-23] MEDS: Insulin LISPRO 300 UNITS/3 ML VIAL SQ SCH ×4 (07:17→20:37)
[2018-02-23] MEDS: Budesonide/Formoterol 160/4.5 1 PUFF INH IH SCH ×2 (07:33→20:34)
--- NOTE | 2018-02-23 08:06 | Event Note ---
Date of Encounter: 02/23/18 Time of Encounter: 08:10 - Cardiology Event Note Nuclear stress test negative for ischemia. Telemetry currently shows A. fib in the 80s to 90s. Plan for FRANSICO/DC cardioversion today. Status post 6 doses of sotalol 120 mg by mouth twice a day. Will check ECG this morning. Discussed with primary service. Further recommendations after FRANSICO/cardioversion.
[2018-02-23] MEDS: Diltiazem CD (24hr) 180 MG CAPSULE PO SCH (08:38)
[2018-02-23] MEDS: Fluticasone Propionate Nasal 50 MCG/SPRAY BOTTLE NS SCH (08:38)
[2018-02-23] MEDS: Losartan/HCTZ 50-12.5 TABLET PO SCH (08:38)
--- NOTE | 2018-02-23 09:31 | Internal Med Progress Note ---
Hospitalist Progress Note - Encounter Date of Encounter: 02/23/18 Time of Encounter: 09:30 - Exam Vitals: Temp Pulse Resp BP Pulse Ox 98.2 F 81 19 101/73 98 02/23/18 07:39 02/23/18 07:39 02/23/18 07:39 02/23/18 07:39 02/23/18 07:39 Exam: Gen - Awake, alert, oriented x 3, no acute distress HEENT - NCAT, PERRLA, EOMI, hearing grossly intact, oropharynx benign CV - RRR, normal S1 and S2, no M/R/G, no BLE edema Resp - Normal WOB, CTAB, no W/R/R GI - Soft, NT/ND, no masses, normal bowel sounds, Skin - Warm, dry, no rashes/lesions/ulcers Psych - Normal mood and affect, no depression or anxiety - Assessment and Plan (1) Atrial fibrillation with RVR Current Visit: Yes Status: Acute Assessment and Plan: On Cardizem drip. Patient is on sotalol at home Had echo this am which came back WNL. seen by cardiology who want patient to have a nuclear stress test Has been transitioned to po cardizem and po sotalol. Patient had previously discontinued anticoagulation by himself. Amenable to resuming anticoagulation and was on heparin drip but has been transitioned to po xarelto Nuclear stress test negative for ischemia Cardiology plan for FRANSICO and cardioversion today (2) Hypertension Current Visit: No Status: Acute Assessment and Plan: Hyzaar and Sotalol. (3) Diabetes Current Visit: No Status: Chronic Assessment and Plan: Metformin, Glipizide, and will add SSI. Lantus 40 units QHS. Monitor fingersticks (4) Hyperlipidemia Current Visit: No Status: Chronic Assessment and Plan: Zocor (5) Dyspnea Current Visit: Yes Status: Acute Assessment and Plan: Possibly due to some pulmonary edema from afib. Will give lasix 40 mg IV once and reassess in am. CTA chest neg for PE of PNA. DVT Prophylaxis: On xarelto - Time Spent with Patient Total time spent is greater than 50% in coordination of care (as documented) at patient's floor/unit and/or counseling patient: Internal Medicine: Result - Labs CBC & Chem 7: 02/23/18 09:52 02/23/18 09:52 - ABG Interpretation ABG results: PT/INR, D-dimer PT 12.0 Seconds (9.4-12.1) 02/19/18 20:58 Consult Discharge Plan - Plan Referrals: Georgie Farr AGENCY OPERATOR [Primary Care Provider] - 02/28/18 10:15 am ____ (2) Hypertension Qualifiers: Hypertension type: essential hypertension Qualified Code(s): I10 - Essential (primary) hypertension (3) Diabetes Qualifiers: Diabetes mellitus type: type 2 Diabetes mellitus long goods drier insulin use: with intermediate use Diabetes mellitus complication status: without complication Qualified Code(s): E11.9 - Type 2 diabetes mellitus without complications; Z79.4 - senior living (current) use of insulin (4) Hyperlipidemia Qualifiers: Hyperlipidemia type: mixed hyperlipidemia Qualified Code(s): E78.2 - Mixed hyperlipidemia (5) Dyspnea Qualifiers: Dyspnea type: shortness of breath Qualified Code(s): R06.02 - Shortness of breath; R06.00 - Dyspnea, unspecified; R06.01 - Orthopnea
[2018-02-23 10:07] LABS: Basophils # 0.1 K/mcL (0.0-0.2); Basophils % 0.6 %; Eosinophils # 0.1 K/mcL (0.0-0.6); Eosinophils % 1.3 %; Hematocrit 44.5 % (37.5-50.1); Hemoglobin 15.2 g/dL (12.9-16.9); Immature Granulocytes % 0.3 % (0-4); Lymphocytes # 2.7 K/mcL (0.6-4.6); Lymphocytes % 29.6 %; Mean Corpuscular HGB Conc 34.2 g/dL (31.6-35.5); Mean Corpuscular Hemoglobin 30.8 pg (28.0-33.3); Mean Corpuscular Volume 90.1 fL (83.0-100.0); Mean Platelet Volume 10.5 fL (9.4-12.4); Monocytes # 0.7 K/mcL (0.0-1.3); Monocytes % 7.9 %; Neutrophils # 5.4 K/mcL (1.6-8.9); Platelet Count 215 K/mcL (140-400); Red Blood Count 4.94 M/mcL (4.19-5.50); Red Cell Distribution Width 12.5 % (11.5-14.5); Segmented Neutrophils % 60.3 %
[2018-02-23 10:25] LABS: BUN/Creatinine Ratio 21 (6-26); Blood Urea Nitrogen 19 mg/dL (8-23); Calcium 8.9 mg/dL (8.6-10.3); Carbon Dioxide 24 mEq/L (23-29); Chloride 106 mEq/L (98-107); Glucose 152 mg/dL (70-105); Osmolality,Calculated 293 (280-300); Potassium 3.8 mEq/L (3.5-5.1); Sodium 139 mEq/L (136-145); eGFR For Non-African Americans > 60 (> 60)
[2018-02-23] MEDS ORDERED: 0.9 % Sodium Chloride 500 ML IVC ONE (10:28)
[2018-02-23] MEDS ORDERED: Tetracaine/Benzocaine/Butamben 1 SPRAY AEROSOL MM ONE (10:28)
[2018-02-23] MEDS ORDERED: Lidocaine Viscous Oral Soln 15 ML SOLUTION MM PRN (10:28)
[2018-02-23] MEDS: *HR* Midazolam HCl 5 MG/5 ML VIAL IVP PRN ×4 (11:10→11:41)
[2018-02-23] MEDS: *HR* FentaNYL (PF) 100 MCG/2 ML VIAL IVP PRN ×3 (11:10→11:41)
--- NOTE | 2018-02-23 16:05 | Electrocardiograph Report ---
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
[2018-02-23] MEDS: *HR* Rivaroxaban 10 MG TABLET PO SCH (16:47)
--- NOTE | 2018-02-23 19:22 | Event Note ---
Date of Encounter: 02/23/18 Time of Encounter: 14:10 - Cardiology Event Note Status post DC cardioversion. Currently sinus bradycardia in the 50s to 60s on telemetry, however significant first-degree AV block currently measuring 349ms. discussed with Dr. Tucker, recommendations for monitoring and observation o vernight. Cardiology will continue to follow.
[2018-02-23] MEDS: Insulin DETEMIR 100 UNIT/ML X5UNITS SQ SCH (20:37)
[2018-02-24] MEDS: Budesonide/Formoterol 160/4.5 1 PUFF INH IH SCH (07:49)
--- NOTE | 2018-02-24 07:54 | Cardiology Progress Note ---
Date of Encounter: 02/24/18 Time of Encounter: 08:00 Assessment and Plan (1) Atrial fibrillation with RVR Current Visit: Yes Status: Acute Per cardiology: Known history of PAF. Stress test negative for ischemia. Currently sinus bradycardia in the 50s with average heart rate the past 12 hours 58. Status post FRANSICO/DC cardioversion. On sotalol 120 mg by mouth twice a day. On Cardizem CD 180 mg by mouth daily-- will decrease to 120 mg daily due to bradycardia. Has first-degree AV block, no events noted on telemetry. Appears clinically stable. Cardiology will sign off, reconsult as needed, follow-up arranged, anticipate discharge home today. Regarding long-term anticoagulation, on Xarelto. Discussion w patient/family: The assessment and plan as outlined above was discussed with the patient and/or family members who expressed understanding and agreement. All questions were answered. Thank you for involving us in the care of your patient. Please call with any questions. Subjective Principal diagnosis: a.fib RVR Interval history: Patient reports he "feels great". Denies any chest pain, shortness of breath, palpitations, dizziness. Anxious to go home. Objective Vital Signs, Last 4 Hours Temp Pulse Resp BP Pulse Ox 02/24/18 04:09 97.6 F 58 14 102/60 98 General: Conversant, No Apparent Distress HEENT: Atraumatic, Normocephaly, Mucus Membranes Moist Neck: No JVD, Normal carotid pulses Cardiac: Reg Rate and Rhythm, Normal S1 and S2, No Murmur Lungs: Normal Breath Sounds, No Wheeze, Rales, Rhonchi Neuro: Alert and responsive, No focal deficits noted Abdomen: Soft, Non-Tender Skin: No rashes noted on visualized skin Musculoskeletal: No Chest Wall Tenderness Extremities: No Clubbing, No Cyanosis, No Edema, Normal Pulses Results 02/23/18 09:52 02/23/18 09:52 Lab Results Impressions Transesophageal w/Cardioversion 02/23/18 08:07 Impressions: LVEF 55-60 %. Normal LV size and systolic function. Normal RV size and function. Moderately dilated LA. There is no thrombus in LA appendage. Multiple small PFOs with left to right shunt. No significant valvular dysfunction. Active Medications Acetaminophen (Tylenol) 650 mg PO Q6HR PRN PRN Reason: Mild Pain/Fever Stop: 08/21/18 20:42 Albuterol Sulfate (Albuterol Inhaler) 2 puff IH [id number] PRN PRN Reason: shortness of breath Stop: 08/22/18 00:01 Budesonide/Formoterol Fumarate (Symbicort) 1 puff IH BIDR [facility]; Protocol Stop: 08/22/18 22:01 Last Admin: 02/24/18 07:49 Dose: 1 puff Dextrose/Water (Dextrose 50% (Syg)) 25 ml IVP AD PRN PRN Reason: Hypoglycemia Stop: 08/23/18 14:59 Diltiazem HCl (Cardizem Cd) 180 mg PO DAILY INA Stop: 08/23/18 14:01 Last Admin: 02/23/18 08:38 Dose: 180 mg Fluticasone Propionate (Flonase) 50 mcg NS DAILY [facility]; Protocol Stop: 08/22/18 09:01 Last Admin: 02/23/18 08:38 Dose: 50 mcg Glucagon (Glucagen) 1 mg IM ONCE PRN PRN Reason: Hypoglycemia Stop: 08/23/18 14:59 Glucose (Gluctose) 15 gm PO ONCE PRN PRN Reason: Hypoglycemia Stop: 08/23/18 14:59 Glucose (Gluctose) 30 gm PO ONCE PRN PRN Reason: Hypoglycemia Stop: 08/23/18 14:59 HCTZ/Losartan Potassium (Hyzaar 50/12.5) 2 each PO DAILY INA Stop: 08/22/18 09:01 Last Admin: 02/23/18 08:38 Dose: 2 each Dextrose (Dextrose 5%) 1,000 mls @ 100 mls/hr IVC .Q10H PRN PRN Reason: HYPOGLYCEMIA Stop: 08/23/18 14:59 Insulin Detemir (Levemir) 40 unit SQ HS [facility] Stop: 08/21/18 21:01 Last Admin: 02/23/18 20:37 Dose: 40 unit Insulin Human Lispro (Humalog) 0 units SQ HS [facility]; Protocol Stop: 08/23/18 21:01 Last Admin: 02/23/18 20:37 Dose: Not Given Insulin Human Lispro (Humalog) 0 units SQ TIDAC [facility]; Protocol Stop: 08/23/18 16:31 Last Admin: 02/23/18 16:47 Dose: 10 units Montelukast Sodium (Singulair) 10 mg PO DAILY [facility] Stop: 08/22/18 09:01 Last Admin: 02/23/18 08:38 Dose: 10 mg Naloxone HCl (Narcan) 0.4 mg IVP Q2MIN PRN PRN Reason: SEE COMMENTS Stop: 08/21/18 20:42 Omeprazole (Prilosec) 40 mg PO DAILY@0730 [facility] Stop: 08/22/18 07:31 Last Admin: 02/23/18 08:38 Dose: 40 mg Rivaroxaban (Xarelto) 20 mg PO 1700 [facility] Stop: 08/24/18 17:01 Last Admin: 02/23/18 16:47 Dose: 20 mg Simvastatin (Zocor) 20 mg PO DAILY [facility]; Protocol Stop: 08/22/18 09:01 Last Admin: 02/23/18 08:38 Dose: 20 mg Sotalol HCl (Betapace) 120 mg PO BID [facility] Stop: 08/21/18 21:01 Last Admin: 02/23/18 20:42 Dose: 120 mg Zolpidem Tartrate (Ambien) 10 mg PO HS [facility]; Protocol Stop: 08/21/18 21:01 Last Admin: 02/23/18 23:16 Dose: 10 mg - EKG Interpretation EKG results cardiology: other (SB on tele in the 50's, avg HR past 12 hrs 58) Consult Discharge Plan - Plan Referrals: Georgie Farr, RADIOLOGY ASST [Primary Care Provider] - 02/28/18 10:15 am Prescriptions: Diltiazem CD (24hr) [Cardizem CD] 120 mg PO DAILY 30 Days #30 cap.er.24h Rivaroxaban [Xarelto] 20 mg PO 1700 30 Days #60 tablet
[2018-02-24] MEDS: Losartan/HCTZ 50-12.5 TABLET PO SCH (08:20)
[2018-02-24 08:24] VITALS: BP 120/71
[2018-02-24] MEDS: Fluticasone Propionate Nasal 50 MCG/SPRAY BOTTLE NS SCH (08:24)
[2018-02-24] MEDS: Insulin LISPRO 300 UNITS/3 ML VIAL SQ SCH (08:27)
--- NOTE | 2018-02-24 08:49 | Discharge Summary ---
Orders not resulted at time of discharge: Pending orders 02/21/18 08:19 NM daphnie perf SPECT multi [NM] Routine 02/23/18 09:54 EKG [ECG 12 lead ECG] [ECG] Stat Date of Encounter: 02/24/18 Time of Encounter: 08:45 - Discharge Diagnosis (1) Atrial fibrillation with RVR Priority: Primary Status: Acute Assessment and Plan: 68 year old male with past medical history of Afib, Type II DM, HTN, HLD, former smoker who presents with difficulty breathing. Pt reported having increasing SOB past couple of days. He also reports orthopnea and difficulty sleeping duet not being able to breath. He states he was on Xarelto for his Afib but he stopped taking about 8 months ago following a sinus infection. He states he didn't like some of the side effects he read about. He was assessed with afib with RVR and started on a Cardizem drip. He was successfully transitioned to po cardizem and po sotalol. Due to his risk factors for CAD, he had an echo done which came back WNL. He was seen by cardiology who recommended a nuclear stress test which came back negative for ischemia. He was taen off heparin drip and started on po xarelto for washateria attendant anticoagulation. Due to his paroxysmal atrial fibrillation, he underwent a FRANSICO and cardioversion on 02/23 per cardio recs. He tolerated procedure well and is currently in sinus rhythm. He will continue cardizem , sotalol and xarelto. He will follow up with cardiology as an outpatient and was discharged in a stable condition (2) Hypertension Priority: Primary Status: Acute Qualifiers: Hypertension type: essential hypertension Qualified Code(s): I10 - Essential (primary) hypertension (3) Diabetes Priority: Primary Status: Chronic Qualifiers: Diabetes mellitus type: type 2 Diabetes mellitus washateria attendant insulin use: with washateria attendant use Diabetes mellitus complication status: without complication Qualified Code(s): E11.9 - Type 2 diabetes mellitus without complications; Z79.4 - senior living (current) use of insulin (4) Hyperlipidemia Priority: Primary Status: Chronic Qualifiers: Hyperlipidemia type: mixed hyperlipidemia Qualified Code(s): E78.2 - Mixed hyperlipidemia (5) Dyspnea Priority: Primary Status: Acute Qualifiers: Dyspnea type: shortness of breath Qualified Code(s): R06.02 - Shortness of breath; R06.00 - Dyspnea, unspecified; R06.01 - Orthopnea Hospital course: Mr. Rosario is a 68 year old male - Time Spent with Patient Total time spent providing and/or coordinating discharge services: - Discharge Medications Prescriptions: Diltiazem CD (24hr) [Cardizem CD] 120 mg PO DAILY 30 Days #30 cap.er.24h Rivaroxaban [Xarelto] 20 mg PO 1700 30 Days #60 tablet Home Medications: Fish Oil/Dha/Epa [Fish Oil 1,200 mg Fish Oil] 1,200 mg PO BID 05/12/16 [History] Losartan/Hydrochlorothiazide [Hyzaar 100-25 Tablet] 1 tab PO DAILY 05/12/16 [History] Simvastatin [Zocor] 20 mg PO DAILY 05/12/16 [History] Sotalol HCl [Betapace] 120 mg PO BID 05/12/16 [History] Zolpidem [Ambien] 10 mg PO HS 05/12/16 [History] Fluticasone Propionate Nasal [Flonase] 1 spray NS DAILY 04/25/17 [History] Fluticasone/Vilanterol [Breo Ellipta 100-25 Mcg INH] 1 puff IH DAILY 04/25/17 [History] GlipiZIDE [Glipizide ER] 10 mg PO BID 04/25/17 [History] Insulin Glargine,Hum.rec.anlog [Lantus Solostar] 40 unit SQ HS 04/25/17 [History] Montelukast [Singulair] 10 mg PO DAILY 04/25/17 [History] Omeprazole [PriLOSEC] 40 mg PO DAILY 04/25/17 [History] Albuterol Sulfate [Albuterol Inhaler] 2 puff IH Q6HR 02/19/18 [History] Metformin HCl [Glucophage] 1,000 mg PO BID 02/19/18 [History] amLODIPine [Norvasc] 5 mg PO DAILY 02/19/18 [History] Diltiazem CD (24hr) [Cardizem CD] 120 mg PO DAILY 30 Days #30 cap.er.24h 02/24/18 [Rx] Rivaroxaban [Xarelto] 20 mg PO 1700 30 Days #60 tablet 02/24/18 [Rx] Allergies/Adverse Reactions: Allergy/AdvReac Type Severity Reaction Status Date / Time No Known Allergies Allergy Verified 04/26/17 05:59 Date of admission: 02/19/18 20:57 Primary care physician: Georgie Farr CNP Consults: 02/20/18 08:48 Consult to Cardiology [CONS] Routine Comment: Consulting Provider: Cardiology [place] Reason for Consult: afib with RVR on sotalol Call Completed: No - Constitutional Vitals: Temp Pulse Resp BP Pulse Ox 97.9 F 67 16 120/71 97 02/24/18 08:19 02/24/18 08:19 02/24/18 08:19 02/24/18 08:19 02/24/18 08:19 General appearance: Present: A&O X 3, morbidly obese, no acute distress Exam: Gen - Awake, alert, oriented x 3, no acute distress HEENT - NCAT, PERRLA, EOMI, hearing grossly intact, oropharynx benign CV - RRR, normal S1 and S2, no M/R/G, no BLE edema Resp - Normal WOB, CTAB, no W/R/R GI - Soft, NT/ND, no masses, normal bowel sounds, Skin - Warm, dry, no rashes/lesions/ulcers Psych - Normal mood and affect, no depression or anxiety - Patient Status Disposition: Hospice - Home Condition: Fair - Discharge Instructions Instructions: Diltiazem (By mouth), Rivaroxaban (By mouth), Atrial Fibrillation (DC), Chronic Hypertension (DC) Follow Up With: Georgie Farr CNP [Primary Care Provider] - 02/28/18 10:15 am
[2018-02-24] MEDS ORDERED: Diltiazem CD (24hr) 120 MG CAPSULE PO SCH (09:00)
--- NOTE | 2018-02-24 19:27 | Electrocardiograph Report ---
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
--- NOTE | 2018-02-27 13:59 | Electrocardiograph Report ---
[place] [address] Test Date: 2018-02-23 Pat Name: Cole Rosario Department: 111 Room: 2NE27 Gender: M Crocodile Farmer: Millie : 1950 Requested By: Avel Patten Order Number: [id number] Reading MD: Сергей Diallo Measurements Intervals [place] Rate: 88 P: [place]: 0 QRS: 42 QRSD: 83 T: -2 QT: 369 QTc: 414 Interpretive Statements ATRIAL FIBRILLATION ABNORMAL RHYTHM ECG Electronically Signed On 02-27-2018 13:57:39 EDT by Сергей Diallo
--- NOTE | 2018-02-27 14:09 | Electrocardiograph Report ---
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
== END 2018-02-24 12:00 | disposition hospice, home (50) | DRG 309 ==
LOC: 2NENU 15:16 → EMEROOARM 15:16 → 2NENU 18:04 → SUATTDRO 20:57
PROVIDERS: ADMIT Internal Medicine Nephrology; ATTEND Student in an Organized Health Care Education/Training Program

== ENCOUNTER 2019-11-04 09:00 | Inpatient (IN) ==
[2019-11-04 11:56] LABS: Basophils # 0.1 K/mcL (0.0-0.2); Basophils % 0.7 %; Eosinophils # 0.2 K/mcL (0.0-0.6); Eosinophils % 1.7 %; Hematocrit 42.7 % (37.5-50.1); Hemoglobin 13.7 g/dL (12.9-16.9); Immature Granulocytes % 0.2 % (0-4); Lymphocytes # 2.7 K/mcL (0.6-4.6); Lymphocytes % 30.9 %; Mean Corpuscular HGB Conc 32.1 g/dL (31.6-35.5); Mean Corpuscular Hemoglobin 27.8 pg (28.0-33.3); Mean Corpuscular Volume 86.6 fL (83.0-100.0); Mean Platelet Volume 10.5 fL (9.4-12.4); Monocytes # 0.5 K/mcL (0.0-1.3); Neutrophils # 5.2 K/mcL (1.6-8.9); Platelet Count 280 K/mcL (140-400); Red Blood Count 4.93 M/mcL (4.19-5.50); Red Cell Distribution Width 13.9 % (11.5-14.5); Segmented Neutrophils % 60.5 %; White Blood Count 8.6 K/mcL (4.3-11.1)
[2019-11-04 12:08] LABS: BUN/Creatinine Ratio 18 (6-26); Blood Urea Nitrogen 18 mg/dL (8-23); Calcium 9.3 mg/dL (8.6-10.3); Carbon Dioxide 27 mEq/L (23-29); Chloride 103 mEq/L (98-107); Glucose 160 mg/dL (70-105); Magnesium 1.6 mg/dL (1.6-2.6); Osmolality,Calculated 289 (280-300); Potassium 4.1 mEq/L (3.5-5.1); Sodium 137 mEq/L (136-145); eGFR For African Americans > 60 (> 60); eGFR For Non-African Americans > 60 (> 60)
[2019-11-04] MEDS: Insulin LISPRO 300 UNITS/3 ML VIAL SQ SCH ×3 (12:19→22:21)
[2019-11-04] MEDS: *HR* Rivaroxaban 10 MG TABLET PO SCH (16:18)
[2019-11-04] MEDS ORDERED: NON-FORMULARY MEDICATION 1 EACH EACH (Rivaroxaban [Xarelto] 20 MG) PO SCH (17:00)
[2019-11-04] MEDS: DilTIAZem CD (24hr) 240 MG CAP.ER.24H PO SCH (17:31)
[2019-11-05] MEDS: Budesonide/Formoterol 160/4.5 1 PUFF INH IH SCH ×2 (07:35→21:01)
[2019-11-05] MEDS: Valsartan 160 MG TABLET PO SCH (08:10)
[2019-11-05] MEDS: Metoprolol XL (24 HR) Succ 50 MG TAB.ER.24H PO SCH (08:10)
[2019-11-05] MEDS: Insulin LISPRO 300 UNITS/3 ML VIAL SQ SCH ×4 (08:13→21:29)
[2019-11-05] MEDS ORDERED: hydroCHLOROthiazide 25 MG TABLET PO SCH (09:00)
[2019-11-05] MEDS ORDERED: Insulin DETEMIR 100 UNIT/ML X5UNITS SQ SCH (17:00)
[2019-11-05] MEDS: DilTIAZem CD (24hr) 240 MG CAP.ER.24H PO SCH (17:04)
[2019-11-05] MEDS: *HR* Rivaroxaban 10 MG TABLET PO SCH (17:04)
[2019-11-06 06:59] LABS: Basophils % 0.5 %; Eosinophils # 0.1 K/mcL (0.0-0.6); Eosinophils % 1.6 %; Hematocrit 44.9 % (37.5-50.1); Hemoglobin 14.2 g/dL (12.9-16.9); Immature Granulocytes % 0.2 % (0-4); Lymphocytes # 2.5 K/mcL (0.6-4.6); Lymphocytes % 28.3 %; Mean Corpuscular HGB Conc 31.6 g/dL (31.6-35.5); Mean Corpuscular Hemoglobin 27.5 pg (28.0-33.3); Mean Corpuscular Volume 86.8 fL (83.0-100.0); Mean Platelet Volume 10.9 fL (9.4-12.4); Monocytes # 0.7 K/mcL (0.0-1.3); Monocytes % 7.8 %; Neutrophils # 5.4 K/mcL (1.6-8.9); Platelet Count 277 K/mcL (140-400); Red Blood Count 5.17 M/mcL (4.19-5.50); Red Cell Distribution Width 14.1 % (11.5-14.5); Segmented Neutrophils % 61.6 %; White Blood Count 8.8 K/mcL (4.3-11.1)
[2019-11-06 07:21] LABS: BUN/Creatinine Ratio 18 (6-26); Blood Urea Nitrogen 20 mg/dL (8-23); Carbon Dioxide 28 mEq/L (23-29); Chloride 103 mEq/L (98-107); Glucose 244 mg/dL (70-105); Magnesium 1.8 mg/dL (1.6-2.6); Osmolality,Calculated 297 (280-300); Potassium 4.2 mEq/L (3.5-5.1); Sodium 138 mEq/L (136-145); eGFR For African Americans > 60 (> 60); eGFR For Non-African Americans > 60 (> 60)
[2019-11-06] MEDS: Budesonide/Formoterol 160/4.5 1 PUFF INH IH SCH ×2 (07:42→22:13)
[2019-11-06] MEDS: Metoprolol XL (24 HR) Succ 50 MG TAB.ER.24H PO SCH (08:14)
[2019-11-06] MEDS: Insulin LISPRO 300 UNITS/3 ML VIAL SQ SCH ×4 (08:14→20:55)
[2019-11-06] MEDS: Valsartan 160 MG TABLET PO SCH (08:14)
[2019-11-06] MEDS ORDERED: *HR* Dextrose 50 % in Water (Vial) 50 ML VIAL IVP PRN (13:09)
[2019-11-06] MEDS ORDERED: Dextrose Gel 15 GM/37.5 ML TUBE PO PRN ×2 (13:09)
[2019-11-06] MEDS ORDERED: D5% in Water 1,000 ML IVC PRN (13:09)
[2019-11-06] MEDS ORDERED: Insulin DETEMIR 100 UNIT/ML X5UNITS SQ ONE (15:00)
[2019-11-06] MEDS: *HR* Rivaroxaban 10 MG TABLET PO SCH (16:48)
[2019-11-06] MEDS: DilTIAZem CD (24hr) 240 MG CAP.ER.24H PO SCH (16:48)
[2019-11-06] MEDS: Insulin DETEMIR 100 UNIT/ML X5UNITS SQ SCH (20:50)
[2019-11-07 04:21] LABS: Basophils # 0.1 K/mcL (0.0-0.2); Basophils % 0.6 %; Eosinophils # 0.2 K/mcL (0.0-0.6); Eosinophils % 1.4 %; Hematocrit 46.4 % (37.5-50.1); Hemoglobin 14.7 g/dL (12.9-16.9); Immature Granulocytes % 0.2 % (0-4); Lymphocytes # 3.1 K/mcL (0.6-4.6); Lymphocytes % 26.8 %; Mean Corpuscular HGB Conc 31.7 g/dL (31.6-35.5); Mean Corpuscular Hemoglobin 28.1 pg (28.0-33.3); Mean Corpuscular Volume 88.7 fL (83.0-100.0); Mean Platelet Volume 10.6 fL (9.4-12.4); Monocytes # 0.8 K/mcL (0.0-1.3); Monocytes % 7.3 %; Neutrophils # 7.3 K/mcL (1.6-8.9); Platelet Count 288 K/mcL (140-400); Red Blood Count 5.23 M/mcL (4.19-5.50); Red Cell Distribution Width 14.2 % (11.5-14.5); Segmented Neutrophils % 63.7 %; White Blood Count 11.4 K/mcL (4.3-11.1)
[2019-11-07 04:35] LABS: BUN/Creatinine Ratio 19 (6-26); Blood Urea Nitrogen 19 mg/dL (8-23); Calcium 8.7 mg/dL (8.6-10.3); Carbon Dioxide 28 mEq/L (23-29); Chloride 105 mEq/L (98-107); Glucose 120 mg/dL (70-105); Magnesium 1.9 mg/dL (1.6-2.6); Osmolality,Calculated 291 (280-300); Potassium 4.4 mEq/L (3.5-5.1); Sodium 139 mEq/L (136-145); eGFR For African Americans > 60 (> 60); eGFR For Non-African Americans > 60 (> 60)
[2019-11-07] MEDS: Budesonide/Formoterol 160/4.5 1 PUFF INH IH SCH ×2 (07:44→19:31)
[2019-11-07] MEDS: Valsartan 160 MG TABLET PO SCH (07:57)
[2019-11-07] MEDS: Metoprolol XL (24 HR) Succ 50 MG TAB.ER.24H PO SCH (07:57)
[2019-11-07] MEDS: Insulin LISPRO 300 UNITS/3 ML VIAL SQ SCH ×4 (07:59→21:57)
[2019-11-07] MEDS ORDERED: 0.9 % Sodium Chloride 500 ML IVC ONE (08:29)
[2019-11-07] MEDS: *HR* FentaNYL (PF) 100 MCG/2 ML VIAL IVP PRN ×3 (09:02→09:10)
[2019-11-07] MEDS: *HR* Midazolam HCl 5 MG/5 ML VIAL IVP PRN ×4 (09:02→09:15)
[2019-11-07] MEDS: *HR* Rivaroxaban 10 MG TABLET PO SCH (17:43)
[2019-11-07] MEDS: DilTIAZem CD (24hr) 240 MG CAP.ER.24H PO SCH (17:43)
[2019-11-07 18:41] VITALS: BP 128/81
[2019-11-07] MEDS: Insulin DETEMIR 100 UNIT/ML X5UNITS SQ SCH (21:57)
== END 2019-11-07 22:30 | disposition home or self-care (01) | DRG 310 ==
LOC: 2ANU → OBSVTOIN 09:10
PROVIDERS: ADMIT Internal Medicine Clinical Cardiac Electrophysiology; ATTEND Internal Medicine Clinical Cardiac Electrophysiology